=== PATIENT | female | born 1945 | race Caucasian/White ===

== ENCOUNTER → 2016-10-04 | Outpatient (CLI) | payer MEDICARE ==
--- NOTE | 2016-10-04 16:31 | MR ---
EXAMINATION TYPE: MR ankle RT wo con DATE OF EXAM: 10/04/2016 12:34 PM COMPARISON: NONE HISTORY: 71-year-old female with right ankle pain TECHNIQUE: Multiplanar, multisequence images of the right ankle were obtained without IV contrast. FINDINGS: Evaluation of the osseous structures shows some degenerative subchondral cystic change anteriorly in the distal tibia. There is a small tibiotalar joint effusion. An os trigonum is present. Additional subchondral cystic change with joint space narrowing is noted throughout the TMT joints. No evidence for acute fracture or focal bone bruise. The syndesmosis appears intact. There is balled up appearance with abnormal signal involving the anterior tibial tendon with the tend on not seen beyond the level of the ankle joint line, refer to axial images 2425. There is increased signal throughout the sinus Tarsi. The tarsal tunnel is clear. There is abnormality of the peroneal tendons with a split tear of the inframalleolar peroneus longus just prior to the cuboid tunnel measuring 1.8 cm long and additional split tear of the inframalleolar peroneus brevis just after the lateral malleolus measuring 2 cm long. No retracted tear. The ATFL and PTFL are intact. There is thickening and intrinsic increased signal within the CFL sugge sting a grade 2 sprain. Mild tenosynovial fluid along the medial flexor tendons. The deltoid ligament and spring ligament com plex appears grossly intact. There is a 2.4 x 2.4 x 0.5 cm area of well-defined fluid seen along the dorsomedial aspect of the mid to hind foot at the level of the navicular cuneiform junction. Nonspecific soft tissue edema throughout. The Achilles tendon is intact. There is mild thickening at the origin of the plantar fascia at 6 mm w ith some perifascial edema and a moderate-sized plantar calcaneal spur. IMPRESSION: 1. Findings concerning for retracted tear of the anterior tibial tendon with stump located anteriorly at the level of the ankle joint line. 2. Fluid signal throughout the sinus tarsi. Findings could reflect sinus tarsi syndrome or sprain inv olving the roots of the extensor retinaculum. 3. A 2.4 x 2.4 x 0.5 cm fluid collection along the dorsomedial mid to hindfoot could reflect posttrau matic fluid or ganglion cyst formation relating to the ATT tear. 4. Longitudinal split tears of the inframalleolar peroneus longus and brevis tendons measuring 1.8 an d 2.0 cm long, respectively. 5. Possible grade 2 CFL sprain. 6. Mild degenerative changes along the anterior tibiotalar joint. 7. Moderate-sized plantar calcaneal spur with findings which can be seen in the setting of plantar fa sciitis. Clinically correlate.
== END | disposition home or self-care (01) ==
LOC: RADMRIMAIN 11:25
PROVIDERS: ATTEND Orthopaedic Surgery
DX: S96.911A Strain of unspecified muscle and tendon at ankle and foot level, right foot, initial encounter (principal); M77.31 Calcaneal spur, right foot

== ENCOUNTER → 2017-12-13 | Outpatient (CLI) | payer MEDICARE ==
--- NOTE | 2017-12-13 17:21 | BD ---
EXAMINATION TYPE: Axial Bone Density DATE OF EXAM: 12/13/2017 COMPARISON: NONE CLINICAL HISTORY: 72 YR OLD FEMALE....ICD-10 CODE: Z13.820 SCREEN FOR OSTEOPOROSIS Height: 64 Weight: 196 FRAX RISK QUESTIONS: NOTHING TO NOTE HERE RISK FACTORS HISTORY OF: Family History of Osteoporosis: NONE KNOWN Active: SOMEWHAT Diet low in dairy products/other sources of calcium: NO Postmenopausal woman: 53 YRS OLD MEDICATIONS: Additional Medications: BP MEDS, STATINS FOR CHOLESTEROL, REFLUX MEDS PRN, VIT D Additional History: NONE TO NOTE EXAM MEASUREMENTS: Bone mineral densitometry was performed using the [employer] Consult System. Bone mineral density as measured about the Lumbar spine is: ----- L1-L4(G/cm2): 1.514 T Score Values are as follows: ----- L1: 1.5 ----- L2: 4.0 ----- L3: 2.8 ----- L4: 2.8 ----- L1-L4: 2.8 Bone mineral density FIRST BONE DENSITY AT [facility] Bone mineral density about the R hip (g/cm2): 0.747 Bone mineral density about the L hip (g/cm2): 0.829 T Score values are as follows: -----R Neck: -1.8 -----L Neck: -1.9 -----R Total: -2.1 -----L Total: -1.4 Bone mineral density FIRST BONE DENSITY AT [facility] FRAX%s: THERE IS A 12.0% CHANCE OF A MAJOR OSTEOPOROTIC FX AND A 2.9% FOR HIP FX.....PROBABILITY O F FX IN 10 YRS TIME IMPRESSION: Osteopenia (T Score between -2.5 and -1). There is slightly increased risk of fracture and the patient may be considered for treatment. Re-Screen 2-5 years. NOTE: T-SCORE=SD OF THE YOUNG ADULT MEAN.
== END | disposition home or self-care (01) ==
LOC: RADBDWWP 12:17
PROVIDERS: ATTEND Obstetrics & Gynecology
DX: M85.80 Other specified disorders of bone density and structure, unspecified site (principal)
CPT/HCPCS: 77080

== ENCOUNTER → 2020-11-03 | Outpatient (CLI) | payer MEDICARE ==
[2020-11-03 11:54] LABS: HCT 43.1 % (34.0-46.0); HGB 14.2 gm/dL (11.4-16.0); MCH 30.5 pg (25.0-35.0); MCV 92.3 fL (80.0-100.0); Mean Platelet Volume 7.3; Platelet Count 283 k/uL (150-450); RBC 4.67 m/uL (3.80-5.40)
[2020-11-03 11:57] LABS: Appearance,Urine Clear (Clear); Bilirubin,Urine Negative (Negative); Blood,Urine Negative (Negative); Color,Urine Light Yellow; Glucose,Urine (UA) Negative (Negative); Hyaline Casts,Urine 1 /lpf (0-2); Ketones,Urine Negative (Negative); Leukocyte Esterase,Urine Small (Negative); Nitrite,Urine Negative (Negative); PH, Urine 6.5 (5.0-8.0); Protein,Urine Negative (Negative); RBC,Urine 1 /hpf (0-5); Specific Gravity,Urine 1.013 (1.001-1.035); Squamous Epithelial Cell,Urine 1 /hpf (0-4); Urobilinogen,Urine <2.0 mg/dL (<2.0); WBC,Urine 1 /hpf (0-5)
[2020-11-03 12:01] LABS: INR 0.9 (<1.2); Partial Thromboplastin Time 25.3 sec (22.0-30.0); Prothrombin Time 9.7 sec (9.0-12.0)
[2020-11-03 12:06] LABS: Albumin 4.3 g/dL (3.5-5.0); Calcium 9.4 mg/dL (8.4-10.2); Potassium 4.9 mmol/L (3.5-5.1); Total Bilirubin 0.5 mg/dL (0.2-1.3); Total Protein 6.9 g/dL (6.3-8.2)
== END | disposition home or self-care (01) ==
LOC: LABPAT 10:26
PROVIDERS: ATTEND Orthopaedic Surgery
DX: Z01.812 Encounter for preprocedural laboratory examination (principal)
CPT/HCPCS: 36415; 80053; 81001; 85027; 85610; 85730; 87070

== ENCOUNTER 2020-11-11 12:11 | Observation (INO) | payer MEDICARE ==
[2020-11-04 12:00] VITALS: BMI 33.5
[~2020-11-11 12:11] MED LIST: ACETAMINOPHEN TAB 500 MG TAB PO PRN; HYDROcodone/APAP 7.5-325MG 1 EACH TAB PO PRN; HYDROmorphone 0.2 MG/1 ML SYRINGE IVP PRN; HYDROmorphone 0.5 MG/0.5 ML SYRINGE IVP PRN; MAGNESIUM HYDROXIDE 2,400 MG/10 ML CUP PO PRN; MELOXICAM 7.5 MG TAB PO PRN; NALOXONE 0.4 MG/ML 1 ML VIAL IV PRN; ONDANSETRON 4 MG/2 ML VIAL IVP PRN; TRANEXAMIC ACID 1,000 MG in SODIUM CHLORIDE 0.9% 100 ML IVPB PRN
[2020-11-11] MEDS ORDERED: LACTATED RINGERS 1,000 ML IV ONE ×3 (12:55→14:42)
[2020-11-11] MEDS ORDERED: DEXAMETHASONE SOD PHOSPHATE 4 MG/ML 1 ML VIAL IVP ONE (13:02)
[2020-11-11] MEDS ORDERED: PHENYLEPHRINE-0.9% NACL SYG 1,000 MCG/10 ML SYRINGE ONE (13:11)
[2020-11-11] MEDS ORDERED: fentaNYL (PF) 50 MCG/ML 2 ML AMP ONE (13:11)
[2020-11-11] MEDS ORDERED: PROPOFOL 10 MG/ML 20 ML VIAL IV ONE (13:11)
[2020-11-11] MEDS ORDERED: GLYCOPYRROLATE 0.2 MG/ML 2 ML VIAL ONE (13:11)
[2020-11-11] MEDS ORDERED: diphenhydrAMINE 50 MG/ML 1 ML VIAL ONE (13:11)
[2020-11-11] MEDS ORDERED: MIDAZOLAM 2 MG/2 ML VIAL ONE (13:11)
[2020-11-11] MEDS ORDERED: TRANEXAMIC ACID 1,000 MG/10 ML VIAL ONE (13:11)
[2020-11-11] MEDS ORDERED: HEPARIN SODIUM,PORCINE 10,000 UNIT/ML 1 ML VIAL ONE (13:11)
[2020-11-11] MEDS ORDERED: SODIUM CHLORIDE 0.9% 100 ML BAG ONE (13:11)
[2020-11-11] MEDS ORDERED: SODIUM CHLORIDE 0.9% IRRIG 1,000 ML BTL IRRIGATION ONE (13:11)
[2020-11-11] MEDS ORDERED: LIDOCAINE 1% INJ 10MG/ML (20 ML MDV) ONE (13:11)
[2020-11-11] MEDS ORDERED: ceFAZolin 1,000 MG in SODIUM CHLORIDE 0.9% 1,000 ML IRRIGATION ONE (13:12)
[2020-11-11] MEDS: ROPIVACAINE/EPI/CLONIDINE/KET 50 ML SYRINGE MISCELLANE PRN ×3 (13:50→14:39)
--- NOTE | 2020-11-11 14:32 | P.OP ---
Date of Procedure: 11/11/20 Preoperative Diagnosis: Severe osteoarthritis right hip Postoperative Diagnosis: Severe osteoarthritis right hip Procedure(s) Performed: Right total hip arthroplasty with a direct anterior approach Implants: [employer] Polarstem standard size 5 [employer] R3, 3 hole hemispherical acetabular shell, 52 mm [employer] Reflection 6.5 mm cancellus screw, 20 mm 2 [employer] R3, XLPE 20 acetabular liner [employer] Oxinium femoral head 36 m, +4 All components were press-fit. The articulation is Oxinium on polyethylene. Anesthesia: spinal Surgeon: Kei Rogers System Designer #1: Ana M Wynn Estimated Blood Loss (ml): 100 Pathology: other (Femoral head) Condition: stable Disposition: PACU Indications for Procedure: After failure of conservative treatment we discussed the surgical and nonsurgic al treatment options at length. Patient wishes to proceed with a total hip arthroplasty with a direct anterior approach. Complications specific to this procedure were discussed at length, including but not limited to infection, leg length discrepancy, dislocation, nerve injury, and fracture. Covid-19 was also discussed at length with the patient, and they are aware of the current policies and procedures. The patient was given the option of delaying surgery, but they elect to proceed knowing these risks. Patient is aware of all these complications and informed consent was obtained Operative Findings: The operative findings are consistent with severe osteoarthritis of the right hip Description of Procedure: Patient was seen and evaluated in the preoperative area and the consent was reviewed. The operative site was marked with a skin marker. The patient was then brought to the operating room and given preoperative antibiotics intravenously. 1 g of Tranexamic acid was also given intravenously. A spinal anesthetic was administered by the anesthesia department. The patient was then placed on the [place] table with the bony prominences well-padded. The hip area was then prepped with a ChloraPrep solution and draped in the usual sterile fashion. A universal timeout was then performed, which confirmed the patient's name, surgical site, ALLERGIES, and procedure being performed on the consent. Next the incision site was located at 1 cm distal to the anterior superior iliac spine along the flexion crease of the hip. The skin and subcutaneous tissues were sharply incised. Incision was carefully dissected down to the fascia overlying the tensor fascia janene muscle. This fascia was then incised in line with the incision. Care was taken to stay laterally in order to avoid injuring the lateral femoral cutaneous nerve. Next, using blunt finger dissection, the tensor fascia janene muscle was dissected off its investing fascia. The muscle was then carefully retracted laterally with a cobra retractor over the lateral neck of the femur. Next, the circumflex vessels were identified and cauterized using the AquaMantis device. The anterior hip capsule was then exposed. The capsule was then opened and an inverted T fashion. Cobra retractors were then placed intracapsularly. The retractors were maintained intracapsular throughout the procedure. The proximal femur was then visualized. A small amount of traction was placed on the leg. The femoral neck was then osteotomized appropriate level above the lesser trochanter. A small wedge of bone was then removed from the remaining femoral head. Next, using a corkscrew the femoral head was removed from the acetabulum. On gross visual inspection, the femoral head had complete loss of articular cartilage and multiple periarticular osteophytes. The femoral head was then measured. Attention was then turned to the acetabulum. The acetabulum was exposed and any remaining labrum was excised. Sequential reaming of the acetabulum was performed using fluoroscopic guidance until there was a good bed of bleeding cancellus bone. When the appropriate size was reached, a trial was then placed. The position and fit of the trial was checked with fluoroscopy. The trial was then removed. Then, using fluoroscopic guidance, the final implant was impacted at 20 of anteversion and 40 of abduction, and fully seated in the acetabulum. 2 screws were then placed in the acetabulum. Again fluoroscopy was used to check position of the screws. Next, the liner was then impacted, with a 20 elevated liner located in the anterior superior quadrant. Component locking was confirmed. Attention was then directed to the femur. With the aid of the Dallas table, the femur was externally rotated to approximately 130, extended, and adducted under the opposite leg. A side hook was then placed under the proximal femur, and the side hook elevator was used to elevate the proximal femur while releasing the capsule. Retractors were then placed. A capsular release was performed, as well as a release of the conjoined tendon, which afforded excellent visualiz ation of the proximal femur. Next, a box osteotome was used to lateralize the proximal femur. A muffler hand was then used to locate the femoral canal. Sequential broaching was then performed with appropriate size which afforded excellent fixation in the proximal femur. A trial was then placed with appropriate head and neck, and the hip was gently reduced with the aid of the Dallas table. Fluoroscopy was then used to check position of the components, as well as to ensure equal leg lengths. The hip was then gently dislocated and the trials were then removed. Final implants were then impacted and the hip was again reduced. Final fluoroscopic x-rays confirmed that the components were in anatomic position, as well as equal leg lengths. The hip was also taken through range of motion, and found to be stable. The hip was then copiously irrigated with antibiotic solution with pulsatile lavage. The hip was then irrigated with Irrisept solution. The soft tissues were then injected with a ropivacaine solution, which consisted of 246.25 mg of ropivacaine, 0.5 mg of epinephrine, 30 mg of Toradol, 80 g of clonidine, and 48.45 mL of sterile water, for a total of 100 mL of fluid injected. A second dose of 1 g of Tranexamic acid was also given intravenously. Any blood collected by Cell Saver was then returned to the patient at this time. The fascia was then closed with 2-0 strata fix suture. The subcutaneous tissue was closed with 3-0 Vicryl. The subcuticular tissue was closed with 3-0 strata fix suture. The skin was then closed with Exofin skin glue. After the glue and dried, and Optifoam silver impregnated dressing was applied. The patient was then transferred to the recovery room in stable condition. The kindergarten assistant ESPERANZA Weaver was required due to the complexity of surgery, and the need for skilled surgical garment assembly supervisor for positioning, draping, exposure, retraction, and closure of the wound.
--- NOTE | 2020-11-11 15:34 | XR ---
Fluoroscopy History: R HIP REPLACEMENT R hip replacment anterior approach
[2020-11-11] MEDS: SODIUM CHLORIDE 0.9% 1,000 ML IV SCH (16:54)
[2020-11-11] MEDS: SENNOSIDES-DOCUSATE SODIUM 1 EACH TAB PO SCH (21:09)
[2020-11-11] MEDS: ATORVASTATIN 10 MG TAB PO SCH (21:10)
[2020-11-11] MEDS: HYDROcodone/APAP 7.5-325MG 1 EACH TAB PO PRN (21:11)
--- NOTE | 2020-11-11 21:12 | P.CONS ---
History of Present Illness - Reason for Consult Consult date: 11/11/20 Medical management - Chief Complaint Right total hip arthroplasty - History of Present Illness Patient is a 75-year-old female with a known history of hypertension, hyperlipidemia and osteoarthritis of the right hip was admitted to hospital for elective right total hip arthroplasty. Patient failed conservative measures as an outpatient. Patient tolerated the procedure very well. Currently awake alert and oriented x3. Slightly lethargic and drowsy. No complaints of chest pain or shortness of breath. No nausea vomiting abdominal pain or diarrhea. Patient states that she does have a history of sciatic pain status post injury several years ago. Denies any fever or chills. No cough or sputum production. Vitals blood pressure 128/60 and pulse is 82 saturating at 96% on 2 L oxygen via nasal cannula. Review of Systems Constitutional: Patient denies any fever or chills . No generalized weakness or weight loss. Abdomen: Patient denied nausea vomiting and diarrhea and abdominal pain. Cardiovascular: Patient denies any chest pain or short of breath no palpitations. Respiratory: patient denied any cough or sputum production. No shortness of breath Neurologic: Patient denied any numbness or tingling headache. Musculoskeletal: Patient denies any complaints of joint swelling or deformity. Skin: Negative Psychiatric: Negative Endocrine: No heat or cold intolerance. No recent weight gain. Genitourinary: No dysuria or hematuria. All other 14 point ROS negative except the above Past Medical History Past Medical History: Hyperlipidemia, Hypertension Additional Past Medical History / Comment(s): wears brace on rt leg from ball of foot to knee with hinge on ankle area History of Any Multi-Drug Resistant Organisms: None Reported Past Surgical History: Section, Cholecystectomy, Tonsillectomy Additional Past Surgical History / Comment(s): kelly cataracts with implants Past Anesthesia/Blood Transfusion Reactions: No Reported Reaction Smoking Status: Never smoker - Past Family History Mother Family Medical History: No Reported History Medications and Allergies Home Medications Medication Instructions Recorded Confirmed Type Acetaminophen [Tylenol Arthritis] 650 mg PO QAM 11/04/20 11/04/20 History Acetaminophen [Tylenol Extra 1,000 mg PO HS 11/04/20 11/04/20 History Strength] Simvastatin [Zocor] 20 mg PO HS 11/04/20 11/11/20 History lisinopriL 10 mg PO QAM 11/04/20 11/11/20 History Aspirin 325 mg PO BID #60 tab 11/11/20 Rx Celecoxib [CeleBREX] 200 mg PO DAILY 5 Days #5 capsule 11/11/20 Rx HYDROcodone/APAP 7.5-325MG [Mora 1 - 2 tab PO Q6H PRN #32 tab 11/11/20 Rx 7.5-325] Ondansetron Odt [Zofran Odt] 1 tab PO Q8HR PRN #10 tab 11/11/20 Rx Sennosides [Senokot] 2 tab PO DAILY PRN #60 tablet 11/11/20 Rx Allergies Allergy/AdvReac Type Severity Reaction Status Date / Time No Known Allergies Allergy Verified 11/11/20 12:49 Physical Exam Vitals: Vital Signs Temp Pulse Pulse Resp BP Pulse Ox 11/11/20 15:47 58 L 16 120/84 100 11/11/20 15:31 75 16 113/67 100 11/11/20 15:15 72 16 103/49 100 11/11/20 15:00 74 16 94/46 100 11/11/20 14:53 97.0 F L 65 16 90/46 98 11/11/20 12:47 98.4 F 65 20 151/65 97 Intake and Output 11/11/20 11/11/20 11/11/20 06:59 14:59 22:59 Intake Total 1151 100 Output Total 100 Balance 1051 100 Intake: IV 1151 100 Output: Estimated Blood Loss 100 Other: Weight 91.1 kg PHYSICAL EXAMINATION: Patient is lying in the bed comfortably, no acute distress, awake alert and oriented.. HEENT: Normocephalic. Neck is supple. Pupils reactive. Nostrils clear. Oral cavity is moist. Neck reveals no JVD, carotid bruits, or thyromegaly. CHEST EXAMINATION: Trachea is central. Symmetrical expansion. Lung orellana clear to auscultation and percussion. CARDIAC: Normal S1, S2 with no gallops. No murmurs ABDOMEN: Soft. Bowel sounds normal. No organomegaly. No abdominal bruits. Extremities: reveal no edema. No clubbing or cyanosis Neurologically awake, alert, oriented x3 with well-coordinated movements. No focal deficits noted Skin: No rash or skin lesions. Psychiatric: Coperative. Nonsuicidal Musculoskeletal: No joint swelling or deformity.Right hip surgical site bandaged. GUERO drain in place. Assessment and Plan Assessment: Status post right total hip arthroplasty postoperative day 0. Hypertension. Controlled. On lisinopril 10 mg every morning at home. Hyperlipidemia History of sciatic nerve pain DVT prophylaxis and GI prophylaxis. Patient will be continued on pain management, bowel regimen and encourage incentive spirometry. PT OT and DVT prophylaxis as per primary team. We will start back on lisinopril tomorrow morning and titrate blood pressure medications as needed. Continue to follow and further recommendations based on clinical course.Follow-up CBC and BMP. Thank you for your consult.
[2020-11-11] MEDS: ASPIRIN 325 MG TAB PO SCH (21:15)
[2020-11-12] MEDS: SODIUM CHLORIDE 0.9% 1,000 ML IV SCH ×2 (03:12→06:17)
[2020-11-12] MEDS: lisinopriL 10 MG TAB PO SCH (08:22)
--- NOTE | 2020-11-12 08:23 | P.PN ---
Subjective Progress Note Date: 11/12/20 Principal diagnosis: Primary osteoarthritis right hip. Postop total right hip arthroplasty, anterior approach. this is a 75-year-old female who is postop day #1 status post total right hip arthroplasty with anterior approach. She has no new complaints or concerns today. Vital signs are stable. Labs are pending. Objective - Vital Signs Vital signs: Vital Signs Temp 97.7 F 11/12/20 01:33 Pulse 61 11/12/20 01:33 Resp 16 11/12/20 01:33 BP 115/74 11/12/20 01:33 Pulse Ox 95 11/12/20 01:33 Intake & Output 11/11/20 11/12/20 11/12/20 18:59 06:59 18:59 Intake Total 1251 3100 Output Total 100 Balance 1151 3100 Weight 91.1 kg Intake: IV 1251 Intake, IV Titration 3100 Amount Lactated Ringers 1,000 ml 1000 @ 0 mls/hr IV [facility] Rx#:[id number] Lactated Ringers 1,000 ml 1000 @ 0 mls/hr IV [facility] Rx#:[id number] Sodium Chloride 0.9% 1, 1000 000 ml @ 70 mls/hr IV . [id number] [facility] Rx#:[id number] ceFAZolin 2 gm In Sodium 100 Chloride 0.9% 50 ml @ 100 mls/hr IVPB Q8H [facility] Rx#: [id number] Output: Estimated Blood Loss 100 Other: # Voids 0 3 - Exam this is a pleasant 75-year-old female in no acute distress. She is alert and oriented 3. Exam of her right hip reveals that her Optifoam dressing is intact. No visible bloody drainage on the dressing. No surrounding erythema. She has full motion of the foot and ankle with weakness to her ankle dorsiflexion secondary to a chronic foot drop. No calf pain with palpation. Neurovascular status to the lower extremity is intact. Assessment and Plan (1) Primary localized osteoarthritis of right hip Current Visit: Yes Status: Acute Code(s): M16.11 - UNILATERAL PRIMARY OSTEOARTHRITIS, RIGHT HIP SNOMED Code(s): 153874639922430 (2) Status post total hip replacement, right Current Visit: Yes Status: Acute Code(s): Z96.641 - PRESENCE OF RIGHT ARTIFICIAL HIP JOINT SNOMED Code(s): 963579403775 Plan: the clinical findings are discussed with the patient. She is apprehensive about being discharged to home today. She does live alone. We will plan discharged to home tomorrow if cleared medically. Begin physical therapy today.
[2020-11-12] MEDS: HYDROcodone/APAP 7.5-325MG 1 EACH TAB PO PRN ×2 (08:25→17:26)
[2020-11-12] MEDS: MELOXICAM 7.5 MG TAB PO SCH (08:26)
[2020-11-12] MEDS: ASPIRIN 325 MG TAB PO SCH ×2 (08:28→21:39)
[2020-11-12 11:40] LABS: Basophils # (A) 0.02 X 10*3/uL (0.00-0.10); Basophils % (A) 0.2 %; Eosinophils # (A) 0 X 10*3/uL (0.04-0.35); Eosinophils % (A) 0 %; HCT 35.3 % (37.2-46.3); HGB 10.9 g/dL (12.0-15.0); Lymphocytes # (A) 1.23 X 10*3/uL (0.90-5.00); Lymphocytes % (A) 12.5 %; MCH 29.9 pg (27.0-32.0); MCHC 30.9 g/dL (32.0-37.0); Mean Platelet Volume 10.6 fL (9.5-12.2); Monocytes # (A) 1.06 X 10*3/uL (0.20-1.00); Monocytes % (A) 10.8 %; Neutrophils # (A) 7.47 X 10*3/uL (1.80-7.70); Platelet Count 235 X 10*3/uL (140-440); RBC 3.64 X 10*6/uL (4.10-5.20); RDW 13.2 % (11.5-14.5); WBC 9.83 X 10*3/uL (4.50-10.00)
--- NOTE | 2020-11-12 16:28 | P.PN ---
Subjective Progress Note Date: 11/12/20 - Reason for Consult Consult date: 11/11/20 Medical management - Chief Complaint Right total hip arthroplasty - History of Present Illness Patient is a 75-year-old female with a known history of hypertension, hype rlipidemia and osteoarthritis of the right hip was admitted to hospital for elective right total hip arthroplasty. Patient failed conservative measures as an outpatient. Patient tolerated the procedure very well. Currently awake alert and oriented x3. Slightly lethargic and drowsy. No complaints of chest pain or shortness of breath. No nausea vomiting abdominal pain or diarrhea. Patient states that she does have a history of sciatic pain status post injury several years ago. Denies any fever or chills. No cough or sputum production. Vitals blood pressure 128/60 and pulse is 82 saturating at 96% on 2 L oxygen via nasal cannula. 11/12/2020 Patient is seen in follow-up today and continues to be closely monitored. Patient is status post right hip arthroplasty. Surgical site and dressing appears dry and intact with minimal bruising noted surrounding the dressing. Patient is having some increased sensation that is radiating down the right lower extremity which is most likely an expected outcome given recent surgery and anesthesia. Should able to work with physical therapy and tolerated and will be followed daily. Plans are for 24-hour observation from orthopedics and possible discharge in 24 hours. Objective - Vital Signs Vital signs: Vital Signs Temp 98.6 F 11/12/20 13:52 Pulse 74 11/12/20 13:52 Resp 18 11/12/20 13:52 BP 129/77 11/12/20 13:52 Pulse Ox 98 11/12/20 13:52 Intake & Output 11/11/20 11/12/20 11/12/20 18:59 06:59 18:59 Intake Total 1251 3100 Output Total 100 Balance 1151 3100 Weight 91.1 kg Intake: IV 1251 Intake, IV Titration 3100 Amount Lactated Ringers 1,000 ml 1000 @ 0 mls/hr IV [facility] Rx#:[id number] Lactated Ringers 1,000 ml 1000 @ 0 mls/hr IV [facility] Rx#:[id number] Sodium Chloride 0.9% 1, 1000 000 ml @ 70 mls/hr IV . [id number] [facility] Rx#:[id number] ceFAZolin 2 gm In Sodium 100 Chloride 0.9% 50 ml @ 100 mls/hr IVPB Q8H [facility] Rx#: [id number] Output: Estimated Blood Loss 100 Other: # Voids 0 3 - Exam Patient is lying in the bed comfortably, no acute distress, awake alert and oriented.. HEENT: Normocephalic. Neck is supple. Pupils reactive. Nostrils clear. Oral cavity is moist. Neck reveals no JVD, carotid bruits, or thyromegaly. CHEST EXAMINATION: Trachea is central. Symmetrical expansion. Lung orellana clear to auscultation and percussion. CARDIAC: Normal S1, S2 with no gallops. No murmurs ABDOMEN: Soft. Bowel sounds normal. No organomegaly. No abdominal bruits. Extremities: reveal no edema. No clubbing or cyanosis. right anterior hip surgery site dressing is dry and intact with minimal bruising noted at the bottom of the dressing no bleeding or increased swelling noted as well Neurologically awake, alert, oriented x3 with well-coordinated movements. No focal deficits noted Skin: No rash or skin lesions. Psychiatric: Cooperative. Non-suicidal Musculoskeletal: No joint swelling or deformity. - Labs CBC & Chem 7: 11/12/20 07:09 Labs: Abnormal Lab Results - Last 24 Hours (Table) 11/12/20 Range/Units 07:09 RBC 3.64 L (4.10-5.20) X 10*6/uL Hgb 10.9 L (12.0-15.0) g/dL Hct 35.3 L (37.2-46.3) % MCHC 30.9 L (32.0-37.0) g/dL Immature Gran # 0.05 H (0.00-0.04) X 10*3/uL Monocytes # 1.06 H (0.20-1.00) X 10*3/uL Eosinophils # 0 L (0.04-0.35) X 10*3/uL Assessment and Plan Assessment: Status post right total hip arthroplasty postoperative day 1. Hypertension. Controlled. On lisinopril 10 mg every morning at home. Will continue to hold lisinopril for now and monitor vitals closely his blood pressure is on the lower side of 109/62 this morning Hyperlipidemia History of sciatic nerve pain DVT prophylaxis GI prophylaxis Full code Patient will be continued on pain management, bowel regimen and encourage incentive spirometry. PT OT evaluated the patient and did well and will likely be discharged tomorrow. Continue with DVT prophylaxis as per primary team. lisinopril held today as blood pressure was on the lower side and also receiving narcotic medications and will continue to monitor vitals with possibly resuming lisinopril once discharged. Continue to follow and further recommendations based on clinical course.CBC within normal limits as white blood count is 9.83 and hemoglobin is stable at 10.9. Possible discharge in 24 hours per the patient. Thank you for this consultation.
[2020-11-12] MEDS: ATORVASTATIN 10 MG TAB PO SCH (21:39)
[2020-11-12] MEDS: SENNOSIDES-DOCUSATE SODIUM 1 EACH TAB PO SCH (22:49)
[2020-11-13] MEDS: HYDROcodone/APAP 7.5-325MG 1 EACH TAB PO PRN (03:08)
[2020-11-13 07:44] VITALS: BP 117/70; PULSE 83; RESP 18; TEMP 98.9
[2020-11-13] MEDS: SODIUM CHLORIDE 0.9% 1,000 ML IV SCH (09:11)
[2020-11-13] MEDS: ASPIRIN 325 MG TAB PO SCH (09:15)
[2020-11-13] MEDS: lisinopriL 10 MG TAB PO SCH (09:15)
[2020-11-13] MEDS: MELOXICAM 7.5 MG TAB PO SCH (09:16)
--- NOTE | 2020-11-13 09:57 | P.DS ---
Providers Date of admission: 11/12/20 15:39 Expected date of discharge: 11/13/20 Attending physician: Kei Rogers Consults: 11/11/20 11:15 Consult Physician Routine Consulting Provider: Axel Rush Consult Reason/Comments: medical management Do you want consulting provider notified?: Yes Primary care physician: Shelly Daughertyel - Discharge Diagnosis(es) (1) Primary localized osteoarthritis of right hip Current Visit: Yes Status: Acute (2) Status post total hip replacement, right Current Visit: Yes Status: Acute Hospital Course: This is a 75-year-old female with known history of degenerative arthritis of the right hip. The patient presented for evaluation as an outpatient. After discussion and consideration patient elects to proceed with total hip arthroplasty. The patient is seen preoperatively by Dr. Rogers and medically cleared for surgery by their primary care physician. Patient is admitted to [facility] on 11/11/2020 for total hip arthroplasty. The procedure is performed without complication or sequelae. The patient is doing well postoperatively. Labs and vital signs are stable on day of discharge. On day of discharge patient's hip incision is healing well. There is minimal erythema. There is no drainage noted at this time. There is minimal soft tissue swelling to the hip and thigh. Patient has full foot and ankle motion without difficulty or pain. Calf is soft and nontender to palpation. Neurovascular status to the right lower extremity is intact. Patient is discharged home in good condition. Opioid start talking form is reviewed and signed. Please see med rec for accurate list of home medications. Plan - Discharge Summary Discharge Rx Participant: Yes New Discharge Prescriptions: New Sennosides [Senokot] 2 tab PO DAILY PRN #60 tablet PRN Reason: Constipation Aspirin 325 mg PO BID #60 tab Celecoxib [CeleBREX] 200 mg PO DAILY 5 Days #5 capsule HYDROcodone/APAP 7.5-325MG [[place] 7.5-325] 1 - 2 tab PO Q6H PRN #32 tab PRN Reason: Pain Ondansetron Odt [Zofran Odt] 1 tab PO Q8HR PRN #10 tab PRN Reason: Nausea No Action Acetaminophen [Tylenol Arthritis] 650 mg PO QAM Simvastatin [Zocor] 20 mg PO HS Acetaminophen [Tylenol Extra Strength] 1,000 mg PO HS lisinopriL 10 mg PO QAM Discharge Medication List Acetaminophen [Tylenol Arthritis] 650 mg PO QAM 11/04/20 [History] Acetaminophen [Tylenol Extra Strength] 1,000 mg PO HS 11/04/20 [History] Simvastatin [Zocor] 20 mg PO HS 11/04/20 [History] lisinopriL 10 mg PO QAM 11/04/20 [History] Aspirin 325 mg PO BID #60 tab 11/11/20 [Rx] Celecoxib [CeleBREX] 200 mg PO DAILY 5 Days #5 capsule 11/11/20 [Rx] HYDROcodone/APAP 7.5-325MG [[place] 7.5-325] 1 - 2 tab PO Q6H PRN #32 tab 11/11/20 [Rx] Ondansetron Odt [Zofran Odt] 1 tab PO Q8HR PRN #10 tab 11/11/20 [Rx] Sennosides [Senokot] 2 tab PO DAILY PRN #60 tablet 11/11/20 [Rx] Follow up Appointment(s)/Referral(s): [facility], [NON-STAFF] - As Needed Kei Rogers DO [Doctor of Osteopathic Medicine] - 2 Weeks Activity/Diet/Wound Care/Special Instructions: Weightbearing as tolerated with walker. Leave dressing intact. Dressing may be removed by home care nurse or by patient in 7 days. Then change dressing twice daily until follow up. May shower with initial dressing intact and after removal. If dressing become saturated, please remove. Please take aspirin 325mg twice daily for 30 days to prevent blood clots. Recommend use of compression stockings daily until follow up to help prevent swelling and blood clots. May remove at night before sleeping. Please follow-up with [facility] in 2 weeks and call with any questions or concerns, . Discharge Disposition: HOME WITH HOME HEALTH SERVICES
--- NOTE | 2020-11-13 15:51 | P.PN ---
Subjective Progress Note Date: 11/13/20 - Reason for Consult Consult date: 11/11/20 Medical management - Chief Complaint Right total hip arthroplasty - History of Present Illness Patient is a 75-year-old female with a known history of hypertension, hype rlipidemia and osteoarthritis of the right hip was admitted to hospital for elective right total hip arthroplasty. Patient failed conservative measures as an outpatient. Patient tolerated the procedure very well. Currently awake alert and oriented x3. Slightly lethargic and drowsy. No complaints of chest pain or shortness of breath. No nausea vomiting abdominal pain or diarrhea. Patient states that she does have a history of sciatic pain status post injury several years ago. Denies any fever or chills. No cough or sputum production. Vitals blood pressure 128/60 and pulse is 82 saturating at 96% on 2 L oxygen via nasal cannula. 11/12/2020 Patient is seen in follow-up today and continues to be closely monitored. Patient is status post right hip arthroplasty. Surgical site and dressing appears dry and intact with minimal bruising noted surrounding the dressing. Patient is having some increased sensation that is radiating down the right lower extremity which is most likely an expected outcome given recent surgery and anesthesia. Should able to work with physical therapy and tolerated and will be followed daily. Plans are for 24-hour observation from orthopedics and possible discharge in 24 hours. 11/13/2020 Patient is seen this morning with no acute overnight issues. Patient was working with physical therapy again and plans are for discharge today and she will be going home and her daughters will be staying with her for another 2 days and will be receiving home care in the outpatient setting. Patient is extremely anxious and nervous about being home and not doing well. Patient's right hip dressing is dry and intact with no increased swelling or redness noted. Minimal bruising noted which is expected. Patient instructed to resume blood pressure medications and I will primary care provider upon discharge. Review of systems: Constitutional: No reports of fatigue, fever, or chills Cardiovascular: No reports of chest pain or palpitations Respiratory: No reports of shortness of breath or cough GI: No reports of nausea, vomiting, or diarrhea : No reports of dysuria or retention Neurovascular: Reports generalized weakness and some discomfort of the right hip All medications have been reviewed Objective - Vital Signs Vital signs: Vital Signs Temp 98.9 F 11/13/20 07:43 Pulse 83 11/13/20 07:43 Resp 18 11/13/20 07:43 BP 117/70 11/13/20 07:43 Pulse Ox 93 L 11/13/20 07:43 Intake & Output 11/12/20 11/13/20 11/13/20 18:59 06:59 18:59 Intake Total 480 Balance 480 Intake: Oral 480 Other: # Voids 3 - Exam Patient is sitting up in the chair comfortably, no acute distress, awake alert and oriented.. HEENT: Normocephalic. Neck is supple. Pupils reactive. Nostrils clear. Oral cavity is moist. Neck reveals no JVD, carotid bruits, or thyromegaly. CHEST EXAMINATION: Trachea is central. Symmetrical expansion. Lung orellana clear to auscultation and percussion. CARDIAC: Normal S1, S2 with no gallops. No murmurs ABDOMEN: Soft. Bowel sounds normal. No organomegaly. No abdominal bruits. Extremities: reveal no edema. No clubbing or cyanosis. right anterior hip surgery site dressing is dry and intact with minimal bruising noted at the bottom of the dressing no bleeding or increased swelling noted as well Neurologically awake, alert, oriented x3 with well-coordinated movements. No focal deficits noted Skin: No rash or skin lesions. Psychiatric: Cooperative. Non-suicidal Musculoskeletal: No joint swelling or deformity. - Labs CBC & Chem 7: 11/12/20 07:09 Labs: Abnormal Lab Results - Last 24 Hours (Table) 11/12/20 Range/Units 07:09 RBC 3.64 L (4.10-5.20) X 10*6/uL Hgb 10.9 L (12.0-15.0) g/dL Hct 35.3 L (37.2-46.3) % MCHC 30.9 L (32.0-37.0) g/dL Immature Gran # 0.05 H (0.00-0.04) X 10*3/uL Monocytes # 1.06 H (0.20-1.00) X 10*3/uL Eosinophils # 0 L (0.04-0.35) X 10*3/uL Assessment and Plan Assessment: Status post right total hip arthroplasty postoperative day 2. Hypertension. Controlled. On lisinopril 10 mg every morning at home. Instructed to resume home dosing on discharge Hyperlipidemia History of sciatic nerve pain DVT prophylaxis GI prophylaxis Full code Plan: Patient will be continued on pain management, bowel regimen and encourage incentive spirometry. Patient is being discharged today. Continue with DVT prophylaxis as per primary team. Continue to follow and further recommendations based on clinical course. Patient instructed to monitor blood pressure and may resume home dose and follow-up with primary care provider. Thank you for this consultation.
== END 2020-11-13 14:14 | disposition home health service (06) ==
LOC: OR 12:11 → 4SSUR 14:49 → OR 11-12 15:39
PROVIDERS: ADMIT Orthopaedic Surgery; ATTEND Orthopaedic Surgery
DX: M16.11 Unilateral primary osteoarthritis, right hip (principal); E78.5 Hyperlipidemia, unspecified; I10 Essential (primary) hypertension; M54.30 Sciatica, unspecified side; Z79.82 Long term (current) use of aspirin; Z79.1 Long term (current) use of non-steroidal anti-inflammatories (NSAID); Z79.899 Other long term (current) drug therapy; Z87.828 Personal history of other (healed) physical injury and trauma; Z90.49 Acquired absence of other specified parts of digestive tract; Z98.42 Cataract extraction status, left eye; Z98.41 Cataract extraction status, right eye; Z96.1 Presence of intraocular lens; Z98.891 History of uterine scar from previous surgery; Z98.890 Other specified postprocedural states
CPT/HCPCS: 94760 ×2; 97116; 97161; 97165; 86891; 86900; 86901; 85025; 86850; 88300; 73501; 27130; G0378 ×2; C1776; J2250; J1200; J1644; J1100; J0690 ×3; J2405; J2001; J3010; J2370; J2704

== ENCOUNTER 2022-04-29 20:41 | Emergency (ER) | payer MEDICARE ==
[2022-04-29 20:51] VITALS: TEMP 98.2
[2022-04-29] MEDS ORDERED: SODIUM CHLORIDE 0.9% 1,000 ML IV STA (21:45)
[2022-04-29 22:06] LABS: Basophils # (A) 0.1 k/uL (0-0.2); Basophils % (A) 1 %; Eosinophils # (A) 0.2 k/uL (0-0.7); Eosinophils % (A) 2 %; HCT 40.1 % (34.0-46.0); HGB 13.5 gm/dL (11.4-16.0); Lymphocytes # (A) 2.8 k/uL (1.0-4.8); Lymphocytes % (A) 24 %; MCH 30.9 pg (25.0-35.0); MCHC 33.6 g/dL (31.0-37.0); Mean Platelet Volume 9.2; Monocytes # (A) 0.7 k/uL (0-1.0); Monocytes % (A) 6 %; Neutrophils # (A) 7.7 k/uL (1.3-7.7); Neutrophils % (A) 66 %; Platelet Count 281 k/uL (150-450); RBC 4.36 m/uL (3.80-5.40); RDW 12.5 % (11.5-15.5); WBC 11.6 k/uL (3.8-10.6)
--- NOTE | 2022-04-29 22:09 | CT ---
EXAMINATION TYPE: CT brain pat kelley DATE OF EXAM: 04/29/2022 COMPARISON: None HISTORY: pain post syncope episode CT DLP: 1530.7 mGycm, Automated exposure control for dose reduction was used. CONTRAST: Patient injected with 0 mL of Isovue 300. CT of the brain is performed utilizing 3 mm thick sections through the posterior fossa and 3 mm thick sections through the remaining calvarium. Study is performed within 24 hours of arrival to the hospital. No abnormal hyperdensity is present to suggest an acute intracranial hemorrhage. No mass lesion is evident. No acute infarcts are evident. Mild periventricular white matter hypodensity is present, likely on t he basis of chronic white matter ischemic changes. Ventricles and sulci are prominent for the patient age. Paranasal sinuses and mastoid air cells within the [id number] are clear. IMPRESSIONS: 1. Atrophy with mild periventricular white matter ischemic-type changes. CT cervical spine. COMPARISON: None CT of the cervical spine is performed in the axial plane at 2 mm thick sections. Reconstructed image s in the coronal, and sagittal plane are reviewed on the computer. No acute fractures are evident. Vertebral body alignment is normal. Diffuse loss of disc height and cervical spine. Vertebral body heights are preserved. No spinal canal stenosis is evident. Left C3-4 foramen is narrowed due to uncovertebral joint hypertrophy large left facet hypertrophy. Th ere is mild retrolisthesis of L4 posterior L5. Uncovertebral joint hypertrophy is narrowing of L4-5 f oramen bilaterally. Moderate foraminal narrowing is present bilaterally at C5-6 from uncovertebral angélica int the. Foraminal narrowing is present C6-7 from uncovertebral joint hypertrophy. IMPRESSIONS: 1. No acute osseous abnormality. 2. Foraminal narrowing due to uncovertebral joint hypertrophy discussed above
--- NOTE | 2022-04-29 22:10 | XR ---
EXAMINATION TYPE: XR chest 2V DATE OF EXAM: 04/29/2022 COMPARISON: None INDICATION: Syncope TECHNIQUE: Frontal and lateral views of the chest are obtained. FINDINGS: The heart size is normal. The pulmonary vasculature is normal. The lungs are clear. IMPRESSION: 1. No acute pulmonary process.
[2022-04-29 22:18] LABS: INR 0.9 (<1.2); Partial Thromboplastin Time 22.4 sec (22.0-30.0); Prothrombin Time 9.7 sec (9.0-12.0)
[2022-04-29 23:29] LABS: Albumin 3.8 g/dL (3.5-5.0); Calcium 8.9 mg/dL (8.4-10.2); Magnesium 2.2 mg/dL (1.6-2.3); Potassium 4.2 mmol/L (3.5-5.1); Total Bilirubin 0.4 mg/dL (0.2-1.3); Total Protein 6.4 g/dL (6.3-8.2)
--- NOTE | 2022-04-29 23:39 | ED ---
General Adult HPI - General Chief complaint: Syncope Stated complaint: Syncope, head injury Time Seen by Provider: 04/29/22 21:36 Source: patient, EMS Mode of arrival: EMS Limitations: no limitations - History of Present Illness Initial comments: Patient is a 77-year-old female with past medical history of hyperlipidemia and hypertension presenting with chief complaint of syncope. 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 Patient states that prior to losing consciousness she felt a bit dizzy. Bystanders say that she didn't hit her head. No one was able to provide me with an approximately length of time that she was unconscious. No loss of bowel or bladder control. C- collar was initiated by EMS. No chest pain or difficulty breathing. No palpitations or weakness. No numbness or tingling. No abdominal pain, nausea, vomiting. No headache, vision or hearing changes, neck pain or stiffness. - Related Data Home Medications Medication Instructions Recorded Confirmed Acetaminophen [Tylenol Arthritis] 650 mg PO QAM 11/04/20 11/04/20 Acetaminophen [Tylenol Extra 1,000 mg PO HS 11/04/20 11/04/20 Strength] Simvastatin [Zocor] 20 mg PO HS 11/04/20 11/11/20 lisinopriL [Prinivil] 10 mg PO QAM 11/04/20 11/11/20 Previous Rx's Medication Instructions Recorded Aspirin 325 mg PO BID #60 tab 11/11/20 Celecoxib [CeleBREX] 200 mg PO DAILY 5 Days #5 capsule 11/11/20 HYDROcodone/APAP 7.5-325MG [[place] 1 - 2 tab PO Q6H PRN #32 tab 11/11/20 7.5-325] Ondansetron Odt [Zofran Odt] 1 tab PO Q8HR PRN #10 tab 11/11/20 Sennosides [Senokot] 2 tab PO DAILY PRN #60 tablet 11/11/20 Allergies Allergy/AdvReac Type Severity Reaction Status Date / Time No Known Allergies Allergy Verified 11/11/20 12:49 Review of Systems ROS Statement: Those systems with pertinent positive or pertinent negative responses have been documented in the HPI. ROS Other: All systems not noted in ROS Statement are negative. Past Medical History Past Medical History: Hyperlipidemia, Hypertension Additional Past Medical History / Comment(s): wears brace on rt leg from ball of foot to knee with hinge on ankle area History of Any Multi-Drug Resistant Organisms: None Reported Past Surgical History: Section, Cholecystectomy, Tonsillectomy Additional Past Surgical History / Comment(s): kelly cataracts with implants Past Anesthesia/Blood Transfusion Reactions: No Reported Reaction Past Psychological History: No Psychological Hx Reported Smoking Status: Never smoker Past Alcohol Use History: None Reported Past Drug Use History: None Reported - Past Family History Mother Family Medical History: No Reported History General Exam Limitations: no limitations General appearance: alert, in no apparent distress Head exam: Present: atraumatic, normocephalic, normal inspection Eye exam: Present: normal appearance, PERRL, EOMI. Absent: scleral icterus, conjunctival injection, periorbital swelling Pupils: Present: normal accommodation Neck exam: Present: normal inspection Respiratory exam: Present: normal lung sounds bilaterally. Absent: respiratory distress, wheezes, rales, rhonchi, stridor Cardiovascular Exam: Present: regular rate, normal rhythm, normal heart sounds. Absent: systolic murmur, diastolic murmur, rubs, gallop, clicks Neurological exam: Present: alert, oriented X3, CN II-XII intact Expanded Patient oriented to: Present: person, place, time Speech: Present: fluid speech Motor strength exam: RUE: 5, LUE: 5, RLE: 5, LLE: 5 Eye Response: (4) open spontaneously Motor Response: (6) obeys commands Verbal Response: (5) oriented Romy Total: 15 Psychiatric exam: Present: normal affect, normal mood Skin exam: Present: warm, dry, intact, normal color. Absent: rash Course Vital Signs 04/29/22 04/29/22 04/29/22 20:49 21:30 22:00 Temperature 98.2 F Pulse Rate 68 64 62 Respiratory 16 18 18 Rate Blood Pressure 174/75 151/72 164/71 O2 Sat by Pulse 98 98 98 Oximetry 04/29/22 04/29/22 04/30/22 22:30 23:00 00:15 Temperature Pulse Rate 66 64 67 Respiratory 18 18 16 Rate Blood Pressure 149/80 162/69 155/83 O2 Sat by Pulse 98 98 98 Oximetry EKG Findings - EKG Comments: EKG Findings:: Sinus rhythm with sinus arrhythmia. Ventricular rate 67. DE interval 182. QRS 86. QT 414. QTc 429. No ST deviation. EKG reviewed by myself as well as my attending. Medical Decision Making - Medical Decision Making Patient is a 77-year-old female presenting with chief complaint of syncope. Episode occurred just prior to arrival. Patient felt dizzy before losing consciousness, no chest pain, difficulty breathing, palpitations, weakness. No loss of bladder control. On physical examination there are no focal neuro logical deficits, heart and lungs are clear to auscultation. EKG shows no dysrhythmia. WBC 11.6, likely reactive. BUN 24, likely due to hydration status, patient is receiving IV fluids. Troponin is less than 0.012. Electrolytes are WNL. CT of the brain and cervical spine and chest x-ray show n o acute process per my interpretation, radiologist report is also reviewed. Educated patient on these findings, patient is feeling well at this time and would like to be discharged home. She states that she has had some mild congestion and sore throat for the past 3 days and is requesting that Covid and influenza testing the sent, however she will call back for her results. Educated on need for follow-up, patient states that she has an upcoming appointment with her PCP already scheduled. Follow-up with PCP. Report back to ER with any new or worsening symptoms. Discussed return parameters and answered all questions. Patient conveyed verbal understanding and agreed to the plan. I discussed this case in detail with my attending Dr. Verdin - Lab Data Result diagrams: 04/29/22 21:35 04/29/22 22:50 Lab Results 04/29/22 04/29/22 04/29/22 Range/Units 21:35 21:35 21:35 WBC 11.6 H (3.8-10.6) k/uL RBC 4.36 (3.80-5.40) m/uL Hgb 13.5 (11.4-16.0) gm/dL Hct 40.1 (34.0-46.0) % MCV 92.0 (80.0-100.0) fL MCH 30.9 (25.0-35.0) pg MCHC 33.6 (31.0-37.0) g/dL RDW 12.5 (11.5-15.5) % Plt Count 281 (150-450) k/uL MPV 9.2 Neutrophils % 66 % Lymphocytes % 24 % Monocytes % 6 % Eosinophils % 2 % Basophils % 1 % Neutrophils # 7.7 (1.3-7.7) k/uL Lymphocytes # 2.8 (1.0-4.8) k/uL Monocytes # 0.7 (0-1.0) k/uL Eosinophils # 0.2 (0-0.7) k/uL Basophils # 0.1 (0-0.2) k/uL PT 9.7 (9.0-12.0) sec INR 0.9 (<1.2) APTT 22.4 (22.0-30.0) sec Sodium (137-145) mmol/L Potassium (3.5-5.1) mmol/L Chloride (98-107) mmol/L Carbon Dioxide (22-30) mmol/L Anion Gap mmol/L BUN (7-17) mg/dL Creatinine (0.52-1.04) mg/dL Est GFR (CKD-EPI)AfAm (>60 ml/min/1.73 sqM) Est GFR (CKD-EPI)NonAf (>60 ml/min/1.73 sqM) Glucose (74-99) mg/dL Calcium (8.4-10.2) mg/dL Magnesium (1.6-2.3) mg/dL Total Bilirubin (0.2-1.3) mg/dL AST (14-36) U/L ALT (4-34) U/L Alkaline Phosphatase (38-126) U/L Troponin I <0.012 (0.000-0.034) ng/mL Total Protein (6.3-8.2) g/dL Albumin (3.5-5.0) g/dL Urine Color Urine Appearance (Clear) Urine pH (5.0-8.0) Ur Specific [place] (1.001-1.035) Urine Protein (Negative) Urine Glucose (UA) (Negative) Urine Ketones (Negative) Urine Blood (Negative) Urine Nitrite (Negative) Urine Bilirubin (Negative) Urine Urobilinogen (<2.0) mg/dL Ur Leukocyte Esterase (Negative) Urine RBC (0-5) /hpf Urine WBC (0-5) /hpf Ur Squamous Epith Cells (0-4) /hpf Urine Mucus (None) /hpf Coronavirus (PCR) (Not Detectd) Influenza Type A RNA (Not Detectd) Influenza Type B (PCR) (Not Detectd) 04/29/22 04/29/22 04/30/22 Range/Units 22:50 23:40 00:08 WBC (3.8-10.6) k/uL RBC (3.80-5.40) m/uL Hgb (11.4-16.0) gm/dL Hct (34.0-46.0) % MCV (80.0-100.0) fL MCH (25.0-35.0) pg MCHC (31.0-37.0) g/dL RDW (11.5-15.5) % Plt Count (150-450) k/uL MPV Neutrophils % % Lymphocytes % % Monocytes % % Eosinophils % % Basophils % % Neutrophils # (1.3-7.7) k/uL Lymphocytes # (1.0-4.8) k/uL Monocytes # (0-1.0) k/uL Eosinophils # (0-0.7) k/uL Basophils # (0-0.2) k/uL PT (9.0-12.0) sec INR (<1.2) APTT (22.0-30.0) sec Sodium 138 (137-145) mmol/L Potassium 4.2 (3.5-5.1) mmol/L Chloride 107 (98-107) mmol/L Carbon Dioxide 24 (22-30) mmol/L Anion Gap 7 mmol/L BUN 24 H (7-17) mg/dL Creatinine 0.76 (0.52-1.04) mg/dL Est GFR (CKD-EPI)AfAm 87 (>60 ml/min/1.73 sqM) Est GFR (CKD-EPI)NonAf 75 (>60 ml/min/1.73 sqM) Glucose 166 H (74-99) mg/dL Calcium 8.9 (8.4-10.2) mg/dL Magnesium 2.2 (1.6-2.3) mg/dL Total Bilirubin 0.4 (0.2-1.3) mg/dL AST 23 (14-36) U/L ALT 19 (4-34) U/L Alkaline Phosphatase 72 (38-126) U/L Troponin I (0.000-0.034) ng/mL Total Protein 6.4 (6.3-8.2) g/dL Albumin 3.8 (3.5-5.0) g/dL Urine Color Light Yellow Urine Appearance Clear (Clear) Urine pH 5.5 (5.0-8.0) Ur Specific [place] 1.010 (1.001-1.035) Urine Protein Negative (Negative) Urine Glucose (UA) Negative (Negative) Urine Ketones Negative (Negative) Urine Blood Negative (Negative) Urine Nitrite Negative (Negative) Urine Bilirubin Negative (Negative) Urine Urobilinogen <2.0 (<2.0) mg/dL Ur Leukocyte Esterase Trace H (Negative) Urine RBC 1 (0-5) /hpf Urine WBC 1 (0-5) /hpf Ur Squamous Epith Cells 1 (0-4) /hpf Urine Mucus Rare H (None) /hpf Coronavirus (PCR) (Not Detectd) Influenza Type A RNA Not Detected (Not Detectd) Influenza Type B (PCR) Not Detected (Not Detectd) 04/30/22 Range/Units 00:08 WBC (3.8-10.6) k/uL RBC (3.80-5.40) m/uL Hgb (11.4-16.0) gm/dL Hct (34.0-46.0) % MCV (80.0-100.0) fL MCH (25.0-35.0) pg MCHC (31.0-37.0) g/dL RDW (11.5-15.5) % Plt Count (150-450) k/uL MPV Neutrophils % % Lymphocytes % % Monocytes % % Eosinophils % % Basophils % % Neutrophils # (1.3-7.7) k/uL Lymphocytes # (1.0-4.8) k/uL Monocytes # (0-1.0) k/uL Eosinophils # (0-0.7) k/uL Basophils # (0-0.2) k/uL PT (9.0-12.0) sec INR (<1.2) APTT (22.0-30.0) sec Sodium (137-145) mmol/L Potassium (3.5-5.1) mmol/L Chloride (98-107) mmol/L Carbon Dioxide (22-30) mmol/L Anion Gap mmol/L BUN (7-17) mg/dL Creatinine (0.52-1.04) mg/dL Est GFR (CKD-EPI)AfAm (>60 ml/min/1.73 sqM) Est GFR (CKD-EPI)NonAf (>60 ml/min/1.73 sqM) Glucose (74-99) mg/dL Calcium (8.4-10.2) mg/dL Magnesium (1.6-2.3) mg/dL Total Bilirubin (0.2-1.3) mg/dL AST (14-36) U/L ALT (4-34) U/L Alkaline Phosphatase (38-126) U/L Troponin I (0.000-0.034) ng/mL Total Protein (6.3-8.2) g/dL Albumin (3.5-5.0) g/dL Urine Color Urine Appearance (Clear) Urine pH (5.0-8.0) Ur Specific [place] (1.001-1.035) Urine Protein (Negative) Urine Glucose (UA) (Negative) Urine Ketones (Negative) Urine Blood (Negative) Urine Nitrite (Negative) Urine Bilirubin (Negative) Urine Urobilinogen (<2.0) mg/dL Ur Leukocyte Esterase (Negative) Urine RBC (0-5) /hpf Urine WBC (0-5) /hpf Ur Squamous Epith Cells (0-4) /hpf Urine Mucus (None) /hpf Coronavirus (PCR) Not Detected (Not Detectd) Influenza Type A RNA (Not Detectd) Influenza Type B (PCR) (Not Detectd) Disposition Clinical Impression: Syncope Disposition: HOME SELF-CARE Condition: Fair Instructions (If sedation given, give patient instructions): Syncope (ED) Additional Instructions: Follow-up with PCP. Report back to ER with any new or worsening symptoms. Is patient prescribed a controlled substance at d/c from ED?: No Referrals: Shelly Estrada DO [Primary Care Provider] - 1-2 days Time of Disposition: 00:00
[2022-04-29 23:57] LABS: Appearance,Urine Clear (Clear); Bilirubin,Urine Negative (Negative); Blood,Urine Negative (Negative); Color,Urine Light Yellow; Glucose,Urine (UA) Negative (Negative); Ketones,Urine Negative (Negative); Leukocyte Esterase,Urine Trace (Negative); Mucus,Urine Rare /hpf; Nitrite,Urine Negative (Negative); PH, Urine 5.5 (5.0-8.0); Protein,Urine Negative (Negative); RBC,Urine 1 /hpf (0-5); Squamous Epithelial Cell,Urine 1 /hpf (0-4); Urobilinogen,Urine <2.0 mg/dL (<2.0); WBC,Urine 1 /hpf (0-5)
[2022-04-30 01:07] VITALS: BP 155/83; PULSE 67; RESP 16
== END 2022-04-30 00:20 | disposition home or self-care (01) ==
LOC: EC 20:41
DX: R55 Syncope and collapse (principal); M43.16 Spondylolisthesis, lumbar region; M48.061 Spinal stenosis, lumbar region without neurogenic claudication; I10 Essential (primary) hypertension; E78.5 Hyperlipidemia, unspecified; Z20.822 Contact with and (suspected) exposure to COVID-19; Z79.899 Other long term (current) drug therapy
CPT/HCPCS: 36415; 70450; 71046; 72125; 80053; 81001; 83735; 84484; 85025; 85610; 85730; 87502; 87635; 93005; 96360; 99285

== ENCOUNTER → 2022-05-12 | Outpatient (CLI) | payer MEDICARE ==
--- NOTE | 2022-05-12 14:56 | US ---
EXAMINATION TYPE: US carotid duplex BILAT DATE OF EXAM: 05/12/2022 COMPARISON: NONE CLINICAL HISTORY: R42 DIZZINESS AND GIDDINESS. TECHNIQUE: Carotid duplex ultrasound examination. Indirect Doppler criteria was utilized. FINDINGS: EXAM MEASUREMENTS: RIGHT: Peak Systolic Velocity (PSV) cm/sec ----- Right CCA: 79.0 ----- Right ICA: 77.9 ----- Right ECA: 87.5 ICA/CCA ratio: 1.0 RIGHT: End Diastole cm/sec ----- Right CCA: 23.2 ----- Right ICA: 29.9 ----- Right ECA: 14.2 LEFT: Peak Systolic Velocity (PSV) cm/sec ----- Left CCA: 61.0 ----- Left ICA: 153. ----- Left ECA: 54.6 ICA/CCA ratio: 2.5 LEFT: End Diastole cm/sec ----- Left CCA: 14.7 ----- Left ICA: 40.2 ----- Left ECA: 0.0 VERTEBRALS (direction of flow): Right Vertebral: Antegrade Left Vertebral: Antegrade Rhythm: Normal METHODS SPECIALIST NOTES: Mild atherosclerotic changes on right with no significant velocity increases, mode rate atherosclerotic changes on left with slight velocity increase. IMPRESSION: 1. 50-69% stenosis of the left carotid bifurcation 2. Less than 50% stenosis of the right carotid bifurcation. Criteria for Assigning % of Stenosis / Diameter reduction (Estimation based on the indirect measurements of the internal carotid artery velocities (ICA PSV). 1. Normal (no stenosis)=ICA PSV < 125 cm/s: ratio < 2.0: ICA EDV<40 cm/s. 2. Less than 50% stenosis=ICA PSV < 125 cm/s: ratio < 2.0: ICA EDV<40 cm/s. 3. 50 to 69% stenosis=ICA PSV of 125 to 230 cm/s 50-69% stenosis .0: ICA EDV 40-100 cm/s. 4. Greater than 70% stenosis to near occlusion= ICA PSV > 230 cm/s: ratio > 4.0: ICA EDV > 100 cm/s. 5. Near occlusion= ICA PSV velocities may be low or undetectable: variable ratio and ICA EDV. 6. Total occlusion=unable to detect flow.
== END | disposition home or self-care (01) ==
LOC: RADUSWWP 13:32
PROVIDERS: ATTEND Family Medicine
DX: I65.23 Occlusion and stenosis of bilateral carotid arteries (principal); R42 Dizziness and giddiness
CPT/HCPCS: 93880

== ENCOUNTER 2022-07-27 09:39 | Observation (INO) | payer MEDICARE ==
[~2022-07-27 09:39] MED LIST changes: +DEXAMETHASONE SOD PHOSPHATE 4 MG/ML 1 ML VIAL IV ONE; +GABAPENTIN 300 MG CAP PO PRN; -HYDROcodone/APAP 7.5-325MG 1 EACH TAB PO PRN; -HYDROmorphone 0.2 MG/1 ML SYRINGE IVP PRN; +LIDOCAINE 1% (10MG/ML) FOR IV START INTRADERMA PRN; -MAGNESIUM HYDROXIDE 2,400 MG/10 ML CUP PO PRN; -NALOXONE 0.4 MG/ML 1 ML VIAL IV PRN; +ONDANSETRON 4 MG/2 ML VIAL IVP ONE; -ONDANSETRON 4 MG/2 ML VIAL IVP PRN; -TRANEXAMIC ACID 1,000 MG in SODIUM CHLORIDE 0.9% 100 ML IVPB PRN; +TRANEXAMIC ACID IN NACL,ISO-OS 1,000 MG in SALINE 1 100ML.BAG IVPB PRN
[2022-07-27] MEDS: LACTATED RINGERS 1,000 ML IV SCH (10:15)
[2022-07-27] MEDS ORDERED: fentaNYL (PF) 50 MCG/1 ML VIAL IVP ONE (10:51)
[2022-07-27] MEDS ORDERED: MIDAZOLAM 2 MG/2 ML VIAL IVP ONE (10:51)
[2022-07-27] MEDS ORDERED: MAGNESIUM HYDROXIDE 2,400 MG/10 ML CUP PO PRN (11:33)
[2022-07-27] MEDS ORDERED: HYDROmorphone 0.5 MG/0.5 ML SYRINGE IVP PRN ×3 (11:33)
[2022-07-27] MEDS ORDERED: ONDANSETRON 4 MG/2 ML VIAL IVP PRN (11:33)
[2022-07-27] MEDS ORDERED: NALOXONE 0.4 MG/ML 1 ML VIAL IV PRN (11:33)
--- NOTE | 2022-07-27 11:45 | P.ANPRN ---
Procedure Note - Anesthesia - Nerve Block Performed Left Missael Single Time Out Performed: Yes ([id number]) Date of Procedure: 07/27/22 Procedure Start Time: 10:51 Procedure Stop Time: 10:59 Location of Patient: PreOp Indication: Acute Post-Operative Pain, Dx/Pain Location (Left hip pain), Requested by Surgeon Specifically requested for management of pain by DrKwame: Kei Rogers Sedation Type: Sedate with meaningful contact maintained Preparation: Sterile Prep Position: Supine Catheter: None Needle Types: Pajunk Needle Gauge: 18 (100 mm) Ultrasound used to visualize needle placement: Yes Ultrasound used to observe medication spread: Yes Injectate: 0.5% Ropivacaine (see comment for volume) (20 cc) Blood Aspirated: No Pain Paresthesia on Injection Noted: No Resistance on Injection: Normal Image Stored and Saved: Yes Events: Uneventful and Well Tolerated
[2022-07-27] MEDS ORDERED: PROPOFOL 10 MG/ML 20 ML VIAL IV ONE (11:50)
[2022-07-27] MEDS ORDERED: fentaNYL (PF) 50 MCG/ML 2 ML AMP ONE (11:50)
[2022-07-27] MEDS ORDERED: MIDAZOLAM 2 MG/2 ML VIAL ONE (11:50)
[2022-07-27] MEDS ORDERED: TRANEXAMIC ACID IN NACL,ISO-OS 1,000 MG/100 ML BAG ONE (11:50)
[2022-07-27] MEDS ORDERED: ePHEDrine 50 MG/ML 1 ML VIAL ONE (11:50)
[2022-07-27] MEDS ORDERED: ROPIVACAINE 5 MG/ML 30 ML VIAL ONE (11:50)
[2022-07-27] MEDS ORDERED: PHENYLEPHRINE-0.9% NACL SYG 1,000 MCG/10 ML SYRINGE ONE (11:50)
[2022-07-27] MEDS ORDERED: ceFAZolin 1,000 MG in SODIUM CHLORIDE 0.9% 1,000 ML IRRIGATION ONE (11:54)
[2022-07-27] MEDS ORDERED: ROPIVACAINE 5 MG/ML 30 ML VIAL MISCELLANE ONE (12:40)
[2022-07-27] MEDS ORDERED: LACTATED RINGERS 1,000 ML IV ONE (12:51)
--- NOTE | 2022-07-27 13:21 | P.OP ---
Date of Procedure: 07/27/22 Preoperative Diagnosis: Severe osteoarthritis left hip Postoperative Diagnosis: Severe osteoarthritis left hip Procedure(s) Performed: Left total hip arthroplasty with a direct anterior approach Implants: [employer] Polarstem standard size 4 [employer] R3, 3 hole hemispherical acetabular shell, 52 mm [employer] Reflection 6.5 mm cancellus screw, 20 mm 2 [employer] R3, XLPE 20 acetabular liner [employer] Oxinium femoral head 36 m, +0 All components were press-fit. The articulation is Oxinium on polyethylene. Anesthesia: spinal Surgeon: Kei Rogers Alley Worker #1: Ana M Wynn Estimated Blood Loss (ml): 200 Pathology: other (Femoral head) Condition: stable Disposition: PACU Indications for Procedure: After failure of conservative treatment we discussed the surgical and nonsurgical treatment options at length. Patient wishes to proceed with a total hip arthroplasty with a direct anterior approach. Complications specific to this procedure were discussed at length, including but not limited to infection, leg length discrepancy, dislocation, nerve injury, and fracture. Covid-19 was also discussed at length with the patient, and they are aware of the current policies and procedures. The patient was given the option of delaying surgery, but they elect to proceed knowing these risks. Patient is aware of all these complications and informed consent was obtained Operative Findings: The operative findings are consistent with severe osteoarthritis of the left hip Description of Procedure: The patient was seen and evaluated in the preoperative area and the consent was reviewed. The operative site was marked with a skin marker. The patient verified the procedure and operative site. A MEGHAN block [facility] in the preoperative area. The patient was then brought to the operating room and given preoperative antibiotics intravenously. 1 g of Tranexamic acid was also given intravenously. A spinal anesthetic was administered by the anesthesia department. The patient was then placed on the Fitzgerald table with the bony prominences well-padded. The hip area was then prepped with a ChloraPrep solution and draped in the usual sterile fashion. A universal timeout was then performed, which confirmed the patient's name, surgical site, ALLERGIES, and procedure being performed on the consent. Next the incision site was located at 1 cm distal and 4 cm lateral to the anterior superior iliac spine. The skin and subcutaneous tissues were sharply incised. Incision was carefully dissected down to the fascia overlying the tensor fascia janene muscle. This fascia was then incised in line with the muscle fibers. Care was taken to stay laterally in order to avoid injuring the lateral femoral cutaneous nerve. Next, using blunt finger dissection, the tensor fascia janene muscle was dissected off its investing fascia. The muscle was then carefully retracted laterally with a cobra retractor over the lateral neck of the femur. Next, the circumflex vessels were identified and cauterized using the Aquamantis device. The anterior hip capsule was then exposed. The capsule was then opened and an inverted T fashion. The retractors were then placed intracapsularly. The retractors were maintained intracapsular throughout the procedure. The proximal femur was then visualized. Fluoroscopic x-rays were then taken in order to evaluate the preoperative leg lengths. A small amount of traction was placed on the leg. The femoral neck was then osteotomized at the appropriate level above the lesser trochanter. A small wedge of bone was then removed from the remaining femoral head. Next, using a corkscrew the femoral head was removed from the acetabulum. On gross visual inspection, the femoral head had complete loss of articular cartilage and multiple periarticular osteophytes. The femoral head was then measured. Attention was then turned to the acetabulum. The acetabulum was exposed and any remaining labrum was excised. Sequential reaming of the acetabulum was performed using fluoroscopic guidance until there was a good bed of bleeding cancellus bone. When the appropriate size was reached, a trial was then placed. The position and fit of the trial was checked with fluoroscopy. The trial was then removed. Then, using fluoroscopic guidance, the final implant was impacted at 20 of anteversion and 40 of abduction, and fully seated in the acetabulum. 2 screws were then placed in the acetabulum. Again fluoroscopy was used to check position of the screws. Next, the liner was then impacted, with a 20 elevated liner located in the anterior superior quadrant. Component locking was confirmed. Attention was then directed to the femur. With the aid of the Fitzgerald table, the femur was externally rotated to approximately 130, extended, and adducted under the opposite leg. A side hook was then placed under the proximal femur, and the side hook elevator was used to elevate the proximal femur while releasing the capsule. Retractors were then placed. A capsular release was performed, as well as a release of the conjoined tendon, which afforded excellent visualiza tion of the proximal femur. Next, a box osteotome was used to lateralize the proximal femur. A hand lens polisher was then used to locate the femoral canal. Sequential broaching was then performed with appropriate size which afforded excellent fixation in the proximal femur. A trial was then placed with appropriate head and neck, and the hip was gently reduced with the aid of the Fitzgerald table. Fluoroscopy was then used to check position of the components, as well as to evaluate the leg lengths and offset. The leg lengths and offset were measured as closely as possible to ensure stability of the hip. The hip was then gently dislocated and the trials were then removed. Final implants were then impacted and the hip was again reduced. Final fluoroscopic x-rays confirmed that the components were in anatomic position. The leg lengths and offset were measured and were found to coincide with the trial measurements. The hip was also taken through range of motion, and found to be stable. The hip was then copiously irrigated with antibiotic solution with pulsatile lavage. The hip was then irrigated with Irrisept solution. The soft tissues were then injected with a ropivacaine solution. A second dose of 1 g of Tranexamic acid was also given intravenously. The fascia was then closed with 2-0 strata fix suture. The subcutaneous tissue was closed with 3-0 Vicryl. The subcuticular tissue was closed with 3-0 strata fix suture. The skin was then closed with Exofin skin glue. After the glue and dried, and Optifoam silver impregnated dressing was applied. The patient was then transferred to the recovery room in stable condition. The volunteer services assistant ESPERANZA Weaver was required due to the complexity of surgery, and the need for skilled director medical surgical for positioning, draping, exposure, retraction, and closure of the wound.
[2022-07-27] MEDS: HYDROcodone/APAP 7.5-325MG 1 EACH TAB PO PRN ×2 (15:11→21:03)
--- NOTE | 2022-07-27 15:13 | XR ---
Intraoperative/procedural fluoroscopic services were provided for total left hip arthroplasty. Hardwa re appears intact with appropriate alignment. Total fluoroscopy time is 39.3 seconds with a total of 2 submitted images to PACS. Please see the operative note for further details.
[2022-07-27] MEDS: SODIUM CHLORIDE 0.9% 1,000 ML IV SCH (18:22)
[2022-07-27] MEDS: SENNOSIDES-DOCUSATE SODIUM 1 EACH TAB PO SCH (19:51)
[2022-07-27] MEDS: ASPIRIN 325 MG TAB PO SCH (19:51)
[2022-07-27] MEDS: ATORVASTATIN 10 MG TAB PO SCH (19:51)
--- NOTE | 2022-07-27 21:08 | P.CONS ---
History of Present Illness - Reason for Consult Consult date: 07/27/22 Medical management Requesting physician: Kei Rogers - Chief Complaint Left hip surgery - History of Present Illness This is a pleasant 77-year-old patient follows Dr. Shelly Estrada. Chronic stable medical conditions include hypertension, hyperlipidemia, osteoarthritis of other joints. Patient today underwent left total hip arthroplasty. Postprocedure pain is controlled. Laying in bed. No nausea vomiting. No chest pain. Did tolerate a light supper. Review of systems: GEN.: None EYES: None HEENT: None NECK: None RESPIRATORY: None CARDIOVASCULAR: None GASTROINTESTINAL: None GENITOURINARY: None MUSCULOSKELETAL: Joint pains LYMPHATICS: None HEMATOLOGICAL: None PSYCHIATRY: None NEUROLOGICAL: None Past medical history to include: Hypertension, hyperlipidemia, osteoarthritis Social history: Lives alone. No smoking or alcohol. Physical examination: VITAL SIGNS: 97.9, 79, 17, 99/65, 93% on room air GENERAL: BMI 33.3, reclining, comfortable. EYES: Pupils equal. Conjunctiva normal. HEENT: External appearance of nose and ears normal, oral cavity grossly normal. NECK: JVD not raised; masses not palpable. HEART: First and second heart sounds are normal; no edema. LUNGS: Respiratory rate normal; clear to auscultation. ABDOMEN: Soft, nontender, liver spleen not palpable, no masses palpable. PSYCH: Alert and oriented x3; mood and affect normal. MUSCULOSKELETAL:No Clubbing/cyanosis;muscles-grossly intact. OA. Dressing over incision site left hip. NEUROLOGICAL: Cranial nerves grossly intact; no facial asymmetry, power and sensation grossly intact. LYMPHATICS: No lymph nodes palpable in the axilla and neck INVESTIGATIONS, reviewed in the clinical context: White count 6.7 hemoglobin 14.8 platelets 213 sodium 140 potassium 5. 21.4 creatinine 0.9 Assessment and plan: -Left total hip arthroplasty. Aspirin for DVT prophylaxis. Pain control. -Primary osteoarthritis Pain medications as needed -Obesity BMI 33.3 Weight loss measures -Essential hypertension Prinivil 10 mg a day -Hyperlipidemia Zocor 20 mg daily at bedtime Care was discussed with the patient. Questions answered. Home medications resumed. Thank you Dr. Rogers Past Medical History Past Medical History: Hyperlipidemia, Hypertension Additional Past Medical History / Comment(s): wears brace on rt leg from ball of foot to knee with hinge on ankle area History of Any Multi-Drug Resistant Organisms: None Reported Past Surgical History: Section, Cholecystectomy, Joint Replacement, Tonsillectomy Additional Past Surgical History / Comment(s): kelly cataracts with implants, rt hip replacement Past Anesthesia/Blood Transfusion Reactions: No Reported Reaction Past Psychological History: No Psychological Hx Reported Smoking Status: Never smoker Past Alcohol Use History: None Reported Past Drug Use History: None Reported - Past Family History Mother Family Medical History: No Reported History Medications and Allergies Home Medications Medication Instructions Recorded Confirmed Type Simvastatin [Zocor] 20 mg PO HS 11/04/20 07/21/22 History lisinopriL [Prinivil] 10 mg PO QAM 11/04/20 07/21/22 History Aspirin 325 mg PO BID #60 tab 07/27/22 Rx HYDROcodone/APAP 7.5-325MG [[place] 1 - 2 tab PO Q6H PRN #32 tab 07/27/22 Rx 7.5-325] Sennosides [Senokot] 2 tab PO DAILY PRN #60 tablet 07/27/22 Rx Allergies Allergy/AdvReac Type Severity Reaction Status Date / Time povidone-iodine AdvReac Itching Verified 07/21/22 09:01 [From Betadine] Physical Exam Vitals: Vital Signs Temp Pulse Resp BP Pulse Ox 07/27/22 20:00 97.9 F 79 17 99/65 93 L 07/27/22 19:47 79 99/65 93 L 07/27/22 19:11 63 104/65 92 L 07/27/22 18:56 62 92/58 89 L 07/27/22 18:41 60 100/65 92 L 07/27/22 18:26 64 107/69 95 07/27/22 18:11 62 100/64 92 L 07/27/22 17:56 62 109/68 91 L 07/27/22 17:41 65 115/76 93 L 07/27/22 17:26 60 112/72 93 L 07/27/22 17:11 67 105/65 96 07/27/22 16:11 58 L 16 126/56 94 L 07/27/22 15:47 74 16 134/63 96 07/27/22 15:12 82 16 136/62 97 07/27/22 14:27 60 16 129/58 97 07/27/22 14:12 55 L 16 119/55 100 07/27/22 13:57 60 16 109/55 100 07/27/22 13:42 97.0 F L 65 16 99/51 97 07/27/22 11:39 71 16 175/74 100 07/27/22 11:24 58 L 16 146/56 100 07/27/22 11:09 58 L 16 149/67 100 07/27/22 10:56 72 16 160/72 100 07/27/22 10:51 70 16 175/75 100 07/27/22 10:08 97.5 F L 67 16 150/69 97 Intake and Output 07/27/22 07/27/22 07/27/22 06:59 14:59 22:59 Intake Total 1351 Output Total 200 Balance 1151 Intake: IV 1351 Output: Estimated Blood Loss 200 Other: # Voids 0 Weight 87.9 kg 87.9 kg
[2022-07-28] MEDS: LACTATED RINGERS 1,000 ML IV SCH (03:49)
[2022-07-28] MEDS: SODIUM CHLORIDE 0.9% 1,000 ML IV SCH ×2 (03:49→20:10)
[2022-07-28] MEDS: HYDROcodone/APAP 7.5-325MG 1 EACH TAB PO PRN ×3 (05:34→20:31)
[2022-07-28] MEDS: lisinopriL 10 MG TAB PO SCH (08:50)
[2022-07-28] MEDS: ASPIRIN 325 MG TAB PO SCH ×2 (09:20→20:31)
[2022-07-28 09:51] LABS: Basophils # (A) 0.02 X 10*3/uL (0.00-0.10); Basophils % (A) 0.2 %; Eosinophils # (A) 0 X 10*3/uL (0.04-0.35); Eosinophils % (A) 0 %; HCT 39.7 % (37.2-46.3); HGB 12.6 g/dL (12.0-15.0); Immature Grans, Automated 0.3 %; Lymphocytes # (A) 1.49 X 10*3/uL (0.90-5.00); Lymphocytes % (A) 16.6 %; MCH 29.3 pg (27.0-32.0); MCHC 31.7 g/dL (32.0-37.0); MCV 92.3 fL (80.0-97.0); Monocytes # (A) 0.84 X 10*3/uL (0.20-1.00); Monocytes % (A) 9.4 %; NRBC Per 100 WBC 0 /100 WBCS (0.0-0.0); Neutrophils % (A) 73.5 %; Platelet Count 237 X 10*3/uL (140-440); RDW 13.2 % (11.5-14.5); WBC 8.98 X 10*3/uL (4.50-10.00)
--- NOTE | 2022-07-28 10:47 | P.PN ---
Subjective Progress Note Date: 07/28/22 Principal diagnosis: Primary after arthritis left hip. Status post total left hip arthroplasty. This is a 77-year-old female who is status post total left hip arthroplasty on 07/27/2022. The patient attempted to get up with physical therapy today but was very dizzy. She is currently up in a chair. She has no complaint of nausea, vomiting or diarrhea. She is afebrile. Vital signs are stable. Objective - Vital Signs Vital signs: Vital Signs Temp 97.9 F 07/28/22 08:25 Pulse 80 07/28/22 08:46 Resp 18 07/28/22 08:25 BP 117/74 07/28/22 08:46 Pulse Ox 97 07/28/22 08:25 FiO2 Intake & Output 07/27/22 07/28/22 07/28/22 18:59 06:59 18:59 Intake Total 1351 118 Output Total 200 Balance 1151 118 Weight 87.9 kg Intake: IV 1351 Oral 118 Output: Estimated Blood Loss 200 Other: # Voids 0 2 - Exam This is a pleasant 77-year-old female in no acute distress. She is alert and oriented 3. She is sitting up in a chair. Exam of the left hip reveals that her dressing is clean, dry and intact. She has full foot and ankle motion without difficulty or pain. Neurovascular status to the lower extremity is intact. - Labs CBC & Chem 7: 07/28/22 05:37 Labs: Abnormal Lab Results - Last 24 Hours (Table) 07/28/22 Range/Units 05:37 MCHC 31.7 L (32.0-37.0) g/dL Eosinophils # 0 L (0.04-0.35) X 10*3/uL Assessment and Plan (1) Osteoarthritis of left hip Current Visit: Yes Status: Acute Code(s): M16.12 - UNILATERAL PRIMARY OSTEOARTHRITIS, LEFT HIP SNOMED Code(s): 964625307054072 (2) S/P total left hip arthroplasty Current Visit: Yes Status: Acute Code(s): Z96.642 - PRESENCE OF LEFT ARTIFICIAL HIP JOINT SNOMED Code(s): 989645856231 Plan: The clinical findings are discussed with the patient. Physical therapy will work with her again this afternoon. If her dizziness improves she may be discharged to home later today. Otherwise we'll keep her 1 more day.
--- NOTE | 2022-07-28 12:26 | P.PN ---
Progress Note - Text Progress Note Date: 07/28/22 - Chief Complaint Left hip surgery Hospital course: This is a pleasant 77-year-old patient follows Dr. Shelly Estrada. Chronic stable medical conditions include hypertension, hyperlipidemia, osteoarthritis of other joints. Patient today underwent left total hip arthroplasty. Postprocedure pain is controlled. Laying in bed. No nausea vomiting. No chest pain. Did tolerate a light supper. 07/28/2022: Sitting up in a chair. Did walk to the bathroom. Did feel a bit dizzy this morning. Lisinopril was held. No chest pain. Had a breakfast. No nausea vomiting. If patient is discharged to check her blood pressure every morning. Resume lisinopril when systolic blood pressure above 1:30. Active Medications Hydrocodone Bitart/Acetaminophen (Hydrocodone/Apap 7.5-325mg 1 Each Tab) 1 each PO Q6H PRN PRN Reason: Pain Scale 1 to 5 Stop: 08/26/22 11:36 Last Admin: 07/27/22 21:03 Dose: 1 each Hydrocodone Bitart/Acetaminophen (Hydrocodone/Apap 7.5-325mg 1 Each Tab) 2 each PO Q6H PRN PRN Reason: Pain Scale 6 to 10 Stop: 08/26/22 11:36 Last Admin: 07/28/22 05:34 Dose: 2 each Aspirin (Aspirin 325 Mg Tab) 325 mg PO BID [facility] Stop: 08/26/22 21:01 Last Admin: 07/28/22 09:20 Dose: 325 mg Atorvastatin Calcium (Atorvastatin 10 Mg Tab) 10 mg PO HS [facility] Last Admin: 07/27/22 19:51 Dose: 10 mg Hydromorphone HCl (Hydromorphone 0.5 Mg/0.5 Ml Syringe) 0.125 mg IVP Q3HR PRN PRN Reason: Pain Scale 1 to 3 Stop: 08/26/22 11:34 Hydromorphone HCl (Hydromorphone 0.5 Mg/0.5 Ml Syringe) 0.5 mg IVP Q3HR PRN PRN Reason: Pain Scale 7 to 10 Stop: 08/26/22 11:34 Last Admin: 07/27/22 15:46 Dose: 0.5 mg Hydromorphone HCl (Hydromorphone 0.5 Mg/0.5 Ml Syringe) 0.25 mg IVP Q3HR PRN PRN Reason: Pain Scale 4 to 6 Stop: 08/26/22 11:34 Lactated Ringer's (Lactated Ringers) 1,000 mls @ 20 mls/hr IV .Q24H [facility] Stop: 08/26/22 06:05 Last Admin: 07/28/22 03:49 Dose: Not Given Sodium Chloride (Saline 0.9%) 1,000 mls @ 70 mls/hr IV .[id number] [facility] Stop: 08/26/22 11:46 Last Admin: 07/28/22 03:49 Dose: 70 mls/hr Lidocaine HCl (Lidocaine 1% (10mg/Ml) For Iv Start) 0.1 ml INTRADERMA PER PROTOCOL PRN PRN Reason: IV Start Stop: 08/26/22 06:05 Lisinopril (Lisinopril 10 Mg Tab) 10 mg PO QAM [facility] Last Admin: 07/28/22 08:50 Dose: Not Given Magnesium Hydroxide (Magnesium Hydroxide 2,400 Mg/10 Ml Cup) 2,400 mg PO DAILY PRN PRN Reason: Constipation Stop: 08/26/22 11:34 Naloxone HCl (Naloxone 0.4 Mg/Ml 1 Ml Vial) 0.2 mg IV Q2M PRN PRN Reason: Opioid Reversal Stop: 08/26/22 11:34 Ondansetron HCl (Ondansetron 4 Mg/2 Ml Vial) 4 mg IVP Q8H PRN PRN Reason: Nausea And Vomiting Stop: 08/26/22 11:34 Senna/Docusate Sodium (Sennosides-Docusate Sodium 1 Each Tab) 2 each PO HS [facility] Stop: 08/26/22 21:01 Last Admin: 07/27/22 19:51 Dose: 2 each Past medical history to include: Hypertension, hyperlipidemia, osteoarthritis Social history: Lives alone. No smoking or alcohol. Physical examination: VITAL SIGNS: 97.9, 76, 18, 110/68, 97% room air GENERAL: Up in a chair, comfortable. EYES: Pupils equal. Conjunctiva normal. HEENT: External appearance of nose and ears normal, oral cavity grossly normal. NECK: JVD not raised; masses not palpable. HEART: First and second heart sounds are normal; no edema. LUNGS: Respiratory rate normal; clear to auscultation. ABDOMEN: Soft, nontender, liver spleen not palpable, no masses palpable. PSYCH: Alert and oriented x3; mood and affect normal. MUSCULOSKELETAL:No Clubbing/cyanosis;muscles-grossly intact. OA. Dressing over incision site left hip. INVESTIGATIONS, reviewed in the clinical context: July 28: White count 8.9 hemoglobin 12.6 platelets 277 White count 6.7 hemoglobin 14.8 platelets 213 sodium 140 potassium 5. 21.4 creatinine 0.9 Assessment and plan: -Left total hip arthroplasty. Aspirin for DVT prophylaxis. Pain control. -Primary osteoarthritis Pain medications as needed -Obesity BMI 33.3 Weight loss measures -Essential hypertension Prinivil 10 mg a day, resume a systolic blood pressure above 130 systolic -Hyperlipidemia Zocor 20 mg daily at bedtime Discuss. Parameters given for resumption of Prinivil. Discussed with patient. Follow-up PCP upon discharge. Thank you Dr. Rogers
[2022-07-28] MEDS: SENNOSIDES-DOCUSATE SODIUM 1 EACH TAB PO SCH (20:30)
[2022-07-28] MEDS: ATORVASTATIN 10 MG TAB PO SCH (20:31)
[2022-07-29] MEDS: HYDROcodone/APAP 7.5-325MG 1 EACH TAB PO PRN ×2 (02:18→09:25)
[2022-07-29] MEDS: LACTATED RINGERS 1,000 ML IV SCH (05:46)
[2022-07-29] MEDS: SODIUM CHLORIDE 0.9% 1,000 ML IV SCH (05:46)
[2022-07-29 08:10] VITALS: BP 127/78; PULSE 82; RESP 18; TEMP 98
[2022-07-29] MEDS: lisinopriL 10 MG TAB PO SCH (09:24)
[2022-07-29] MEDS: ASPIRIN 325 MG TAB PO SCH (09:25)
--- NOTE | 2022-07-29 11:19 | P.DS ---
Providers Date of admission: 07/28/22 08:05 Expected date of discharge: 07/29/22 Attending physician: Kei Rogers Consults: 07/27/22 11:33 Consult Physician Routine Consulting Provider: Axel Rush Consult Reason/Comments: medical management Do you want consulting provider notified?: Yes Primary care physician: Shelly Daughertyel - Discharge Diagnosis(es) (1) Osteoarthritis of left hip Current Visit: Yes Status: Acute (2) S/P total left hip arthroplasty Current Visit: Yes Status: Acute Hospital Course: This is a 77-year-old female with known history of degenerative arthritis of the left hip. The patient presented for evaluation as an outpatient. After discussion and consideration patient elects to proceed with total hip arthroplasty. The patient is seen preoperatively by Dr. Rogers and medically cleared for surgery by their primary care physician. Patient is admitted to [facility] on 07/27/2022 for total hip arthroplasty. The procedure is performed without complication or sequelae. The patient is doing well postoperatively. Labs and vital signs are stable on day of discharge. On day of discharge patient's hip incision is healing well. There is minimal erythema. There is no drainage noted at this time. There is minimal soft tissue swelling to the hip and thigh. Patient has full foot and ankle motion without difficulty or pain. Calf is soft and nontender to palpation. Neurovascular status to the left lower extremity is intact. Patient is discharged home in good condition. Please see med rec for accurate list of home medications. Plan - Discharge Summary Discharge Rx Participant: No New Discharge Prescriptions: New Sennosides [Senokot] 2 tab PO DAILY PRN #60 tablet PRN Reason: Constipation Aspirin 325 mg PO BID #60 tab HYDROcodone/APAP 7.5-325MG [[place] 7.5-325] 1 - 2 tab PO Q6H PRN #32 tab PRN Reason: Pain Continue Simvastatin [Zocor] 20 mg PO HS lisinopriL [Prinivil] 10 mg PO QAM Discharge Medication List Simvastatin [Zocor] 20 mg PO HS 11/04/20 [History] lisinopriL [Prinivil] 10 mg PO QAM 11/04/20 [History] Aspirin 325 mg PO BID #60 tab 07/27/22 [Rx] HYDROcodone/APAP 7.5-325MG [[place] 7.5-325] 1 - 2 tab PO Q6H PRN #32 tab 07/27/22 [Rx] Sennosides [Senokot] 2 tab PO DAILY PRN #60 tablet 07/27/22 [Rx] Follow up Appointment(s)/Referral(s): Shelly Estrada DO [Primary Care Provider] - 08/05/22 2:30 pm [facility] [[facility]STA[facility]] - 1-2 Days ([facility] will call you to schedule your in home physical therapy appointments. ) Kei Rogers DO [Doctor of Osteopathic Medicine] - 08/06/22 9:45 am (With Ana M) Activity/Diet/Wound Care/Special Instructions: Weightbearing as tolerated with walker. Leave dressing intact. Dressing may be removed by home care nurse or by patient in 7 days. Then change dressing twice daily until follow up. May shower with initial dressing intact and after removal. If dressing become saturated, please remove. Please take aspirin 325mg twice daily for 30 days to prevent blood clots. Recommend use of compression stockings daily until follow up to help prevent swelling and blood clots. May remove at night before sleeping. Please follow[facility]up with [facility] 2 weeks and call with any questions or concerns, . Daily a.m. blood pressure check in the morning. Resume lisinopril when systolic blood pressure above 1:30 Discharge Disposition: HOME WITH HOME HEALTH SERVICES
--- NOTE | 2022-07-29 14:13 | P.PN ---
Progress Note - Text Progress Note Date: 07/29/22 - Chief Complaint Left hip surgery Hospital course: This is a pleasant 77-year-old patient follows Dr. Shelly Estrada. Chronic stable medical conditions include hypertension, hyperlipidemia, osteoarthritis of other joints. Patient today underwent left total hip arthroplasty. Postprocedure pain is controlled. Laying in bed. No nausea vomiting. No chest pain. Did tolerate a light supper. 07/28/2022: Sitting up in a chair. Did walk to the bathroom. Did feel a bit dizzy this morning. Lisinopril was held. No chest pain. Had a breakfast. No nausea vomiting. If patient is discharged to check her blood pressure every morning. Resume lisinopril when systolic blood pressure above 1:30. 07/29/2022: Up in a chair. Did ambulate. Feeling better. Eating well. take blood pressure daily. Questions answered. Parametria for lisinopril discussed 1:30 Medications reviewed Past medical history to include: Hypertension, hyperlipidemia, osteoarthritis Social history: Lives alone. No smoking or alcohol. Physical examination: VITAL SIGNS: 98, 82, 18, 127/78, 95% room air GENERAL: Up in a chair, comfortable. EYES: Pupils equal. Conjunctiva normal. HEENT: External appearance of nose and ears normal, oral cavity grossly normal. NECK: JVD not raised; masses not palpable. HEART: First and second heart sounds are normal; no edema. LUNGS: Respiratory rate normal; clear to auscultation. ABDOMEN: Soft, nontender, liver spleen not palpable, no masses palpable. PSYCH: Alert and oriented x3; mood and affect normal. MUSCULOSKELETAL:No Clubbing/cyanosis;muscles-grossly intact. OA. Dressing over incision site left hip. INVESTIGATIONS, reviewed in the clinical context: July 28: White count 8.9 hemoglobin 12.6 platelets 277 White count 6.7 hemoglobin 14.8 platelets 213 sodium 140 potassium 5. 21.4 creatinine 0.9 Assessment and plan: -Left total hip arthroplasty. Aspirin for DVT prophylaxis. Pain control. -Primary osteoarthritis Pain medications as needed -Obesity BMI 33.3 Weight loss measures -Essential hypertension Prinivil 10 mg a day, resume a systolic blood pressure above 130 systolic -Hyperlipidemia Zocor 20 mg daily at bedtime Discussed. Follow with PCP. Questions answered Thank you Dr. Rogers
== END 2022-07-29 13:10 | disposition home health service (06) ==
LOC: OR 09:39 → 4SSUR 13:34 → OR 07-28 08:05
PROVIDERS: ADMIT Orthopaedic Surgery; ATTEND Orthopaedic Surgery
DX: M16.12 Unilateral primary osteoarthritis, left hip (principal); I10 Essential (primary) hypertension; E78.5 Hyperlipidemia, unspecified; R26.81 Unsteadiness on feet; E66.9 Obesity, unspecified; Z68.33 Body mass index [BMI] 33.0-33.9, adult; Z96.641 Presence of right artificial hip joint; Z90.49 Acquired absence of other specified parts of digestive tract; Z98.891 History of uterine scar from previous surgery; Z82.49 Family history of ischemic heart disease and other diseases of the circulatory system; Z97.3 Presence of spectacles and contact lenses; Z98.890 Other specified postprocedural states; Z79.899 Other long term (current) drug therapy; Z79.82 Long term (current) use of aspirin; Z91.048 Other nonmedicinal substance allergy status
CPT/HCPCS: 97116; 97161; 97166; 64447; 76942; 86900; 86901; 85025; 86850; 88300; 73501; 27130; G0378 ×2; C1776; J2250; J1100; J0690 ×3; J2405; J3010 ×2; J2795; J2370; J2704; J1170

== ENCOUNTER → 2023-07-14 | Outpatient (CLI) | payer MEDICARE ==
--- NOTE | 2023-07-15 22:44 | CT ---
EXAMINATION TYPE: CT right knee - [facility] Protocol DATE OF EXAM: 07/14/2023 COMPARISON: HISTORY: PAIN/PREOP CT DLP: 838 mGycm Automated exposure control for dose reduction was used. Contrast: None Technique: [facility] presurgical planning of the right knee. Images were obtained in the axial plane at 2 mm thick sections through the hip and ankle and 1 mm thick sections through the knee. Reconstructed i mages in the coronal and sagittal plane are reviewed. FINDINGS: Hip: There is a right hip prosthesis. Knee: There is a small joint effusion present. Patellofemoral joint space narrowing is present. There is loss of the medial compartment joint spaces. Narrowing of the lateral compartment joint space is present. Medial and lateral femoral condylar spurring and medial and lateral tibial plateau spurring is present Ankle: Ankle mortise appears intact. IMPRESSION: 1. CT for [facility] knee presurgical planning.
== END | disposition home or self-care (01) ==
LOC: RADCTMAIN 13:09
PROVIDERS: ATTEND Orthopaedic Surgery
DX: Z01.818 Encounter for other preprocedural examination (principal); M17.0 Bilateral primary osteoarthritis of knee; M25.561 Pain in right knee

== ENCOUNTER → 2023-07-25 | Outpatient (CLI) | payer MEDICARE ==
[2023-07-25 10:05] LABS: INR 0.9 (<1.2); Partial Thromboplastin Time 27.7 sec (22.0-30.0); Prothrombin Time 9.9 sec (10.0-12.5)
[2023-07-25 18:48] LABS: HCT 43.9 % (37.2-46.3); HGB 14.1 g/dL (12.0-15.0); MCH 29.7 pg (27.0-32.0); MCHC 32.1 g/dL (32.0-37.0); MCV 92.4 FL (80.0-97.0); Mean Platelet Volume 11.5 FL (9.5-12.2); NRBC Per 100 WBC 0 X 10*3/uL (0.00-0.01); Platelet Count 269 X 10*3/uL (140-440); RBC 4.75 X 10*6/uL (4.10-5.20); RDW 12.7 % (11.5-14.5); WBC 5.06 X 10*3/uL (4.50-10.00)
[2023-07-25 19:08] LABS: ALT 19 U/L (8-44); AST 23 U/L (13-35); Albumin 4.4 g/dL (3.8-4.9); Albumin/Globulin Ratio 1.63 Ratio (1.60-3.17); Alkaline Phosphatase 90 U/L (41-126); BUN/Creat Ratio 19.62 Ratio (12.00-20.00); Blood Urea Nitrogen 15.7 mg/dL (9.0-27.0); Calcium 9.7 mg/dL (8.7-10.3); Carbon Dioxide 21.7 mmol/L (21.6-31.8); Chloride 105 mmol/L (96-109); Globulin 2.7 g/dL (1.6-3.3); Glucose 112 mg/dL (70-110); Sodium 139 mmol/L (135-145); Total Bilirubin 0.6 mg/dL (0.3-1.2); Total Protein 7.1 g/dL (6.2-8.2)
== END | disposition home or self-care (01) ==
LOC: LABPAT 09:25
PROVIDERS: ATTEND Orthopaedic Surgery
DX: Z01.818 Encounter for other preprocedural examination (principal); Z22.322 Carrier or suspected carrier of Methicillin resistant Staphylococcus aureus
CPT/HCPCS: 36415; 80053; 83036; 85027; 85610; 85730; 87070; 93005

== ENCOUNTER 2023-08-19 08:53 | Day surgery (SDC) | payer MEDICARE ==
[~2023-08-19 08:53] MED LIST changes: -ACETAMINOPHEN TAB 500 MG TAB PO PRN; -DEXAMETHASONE SOD PHOSPHATE 4 MG/ML 1 ML VIAL IV ONE; -GABAPENTIN 300 MG CAP PO PRN; -HYDROmorphone 0.5 MG/0.5 ML SYRINGE IVP PRN; -LIDOCAINE 1% (10MG/ML) FOR IV START INTRADERMA PRN; -MELOXICAM 7.5 MG TAB PO PRN; -ONDANSETRON 4 MG/2 ML VIAL IVP ONE; +TRANEXAMIC 1,000 MG/100ML-NACL 1,000 MG in SALINE 1 100ML.BAG IV PRN; +TRANEXAMIC 1,000 MG/100ML-NACL 1,000 MG in SALINE 1 100ML.BAG IVPB PRN; -TRANEXAMIC ACID IN NACL,ISO-OS 1,000 MG in SALINE 1 100ML.BAG IVPB PRN
[2023-08-19] MEDS ORDERED: HYDROmorphone 0.5 MG/0.5 ML SYRINGE IVP PRN ×2 (09:17→12:16)
[2023-08-19] MEDS ORDERED: LIDOCAINE 1% (10MG/ML) FOR IV START INTRADERMA PRN (09:17)
[2023-08-19] MEDS: ACETAMINOPHEN TAB 500 MG TAB PO PRN (09:37)
[2023-08-19] MEDS: LACTATED RINGERS 1,000 ML IV SCH (09:37)
[2023-08-19] MEDS: oxyCODONE ER 10 MG TAB.ER.12H PO PRN (09:37)
[2023-08-19] MEDS: DOCUSATE 100 MG CAP PO PRN (09:37)
[2023-08-19] MEDS: ONDANSETRON 4 MG/2 ML VIAL IVP PRN ×2 (09:55→16:13)
[2023-08-19] MEDS: KETOROLAC 15 MG/ML 1 ML VIAL IVP PRN (09:55)
[2023-08-19] MEDS: DEXAMETHASONE SOD PHOSPHATE 10 MG/ML 1 ML VIAL IV PRN (09:56)
[2023-08-19] MEDS: FAMOTIDINE 20 MG/2 ML VIAL IVP PRN (09:56)
[2023-08-19] MEDS: MIDAZOLAM 2 MG/2 ML VIAL IVP ONE (10:00)
[2023-08-19] MEDS ORDERED: LIDOCAINE 1% INJ 10MG/ML (20 ML MDV) ONE (10:14)
[2023-08-19] MEDS ORDERED: DEXAMETHASONE SOD PHOSPHATE 4 MG/ML 1 ML VIAL ONE (10:14)
[2023-08-19] MEDS ORDERED: GLYCOPYRROLATE 0.2 MG/ML 2 ML VIAL ONE (10:14)
[2023-08-19] MEDS ORDERED: ROPIVACAINE 5 MG/ML 30 ML VIAL ONE (10:14)
[2023-08-19] MEDS ORDERED: SUCCINYLCHOLINE CHLORIDE 200 MG/10 ML VIAL IV ONE (10:14)
[2023-08-19] MEDS ORDERED: TRANEXAMIC 1,000 MG/100ML-NACL PREMIX BAG ONE (10:14)
[2023-08-19] MEDS ORDERED: ePHEDrine 50 MG/ML 1 ML VIAL ONE (10:14)
[2023-08-19] MEDS ORDERED: NEOSTIGMINE 1 MG/ML 10 ML VIAL ONE (10:14)
[2023-08-19] MEDS ORDERED: ROCURONIUM 10 MG/ML (5 ML VIAL) IV ONE (10:14)
[2023-08-19] MEDS ORDERED: fentaNYL (PF) 50 MCG/ML 2 ML AMP ONE (10:14)
[2023-08-19] MEDS ORDERED: PROPOFOL 10 MG/ML 20 ML VIAL IV ONE (10:14)
[2023-08-19] MEDS ORDERED: HYDROmorphone (PF) 1 MG/ML ONE (10:14)
[2023-08-19] MEDS: ROPIVACAINE/EPI/CLONIDINE/KET 50 ML SYRINGE MISCELLANE PRN (10:47)
[2023-08-19] MEDS ORDERED: MAGNESIUM HYDROXIDE 2,400 MG/30 ML CUP PO PRN (12:16)
[2023-08-19] MEDS ORDERED: NALOXONE 0.4 MG/ML 1 ML VIAL IV PRN (12:16)
[2023-08-19] MEDS ORDERED: bisacodyL 10 MG SUPP RECTAL PRN (12:16)
--- NOTE | 2023-08-19 12:16 | P.OP ---
Date of Procedure: 08/19/23 Preoperative Diagnosis: severe right knee osteoarthritis Postoperative Diagnosis: same Procedure(s) Performed: 1. Right total knee arthroplasty 2. Computer assisted musculoskeletal navigation using CT/MRI images Implants: 1. [place] Triathlon CR Femur Size #3 2. Fan Triathlon [place] Tibial Base Size #4 3. [place] Triathlon CS poly Size #9 4. [place] Triathlon all poly patella, Size #29 Anesthesia: MYRAA, regional Surgeon: Wade Mckeon Binding End Stitcher #1: Jacinto Littlejohn Estimated Blood Loss (ml): 100 IV fluids (ml): 800 Pathology: none sent Condition: stable Disposition: PACU Indications for Procedure: I met with the patient preoperatively in the office setting and discussed treatment of their symptomatic knee arthritis. They failed a long course of nonsurgical treatment and elected to proceed with an elective total knee replacement. I discussed the potential risks and complications at length and gave them ample time to ask questions. Risks discussed included: risks from anesthesia, superficial site surgical infection, acute and/or chronic periprosthetic joint infection, delayed wound healing, drainage, wound necrosis, instability, stiffness, stiffness requiring manipulation and/or revision surgery, damage to local blood vessels or nerves, aseptic loosening of the implants, extensor mechanism issues including disruption, patellar maltracking, avascular necrosis etc., continued or worsened knee pain, generalized dissatisfaction with surgical outcome, need for revision surgery, an inability to regain preinjury level of function, DVT, PE, other medical complications, and possibly loss of life or limb. The patient voiced their understanding that while these are the most common complications other less common complications are possible. They provided both their verbal and written consent to go forward with surgery. Description of Procedure: The patient was identified in preoperative holding and the correct operative extremity was verified and marked with a marker. I reviewed the consent form with the patient at length. All of their questions were answered. The patient was given a block by anesthesia. They were then brought back to the operating room. They were transferred onto the operating room table where a general anesthetic, preoperative antibiotics, and tranexamic acid were administered by anesthesia. A tourniquet was applied to the proximal aspect of the operative extremity. The contralateral extremity was padded under the heel and secured to the operating room table with a nonsterile blue towel and tape. The ipsilateral arm was carefully draped across the patient's chest and secured with a pillow and foam. A post was applied over the lateral aspect of the ipsilateral thigh and a bolster was placed under the ipsilateral foot. I verified that the operative extremity was stable and the knee was flexed to 90. The operative extremity was then placed in a leg bey, nonsterile drapes were applied, and the extremity was prepped and draped sterilely in the standard sterile fashion. Prior to starting surgery timeout was performed identifying the correct patient, operative extremity, and procedure. The leg was then elevated, exsanguinated with an Esmarch bandage, and the tourniquet was inflated. An anterior midline incision was made sharply with a scalpel. Once I had dissected deep to the superficial fascial layer medial and lateral flaps were elevated. A medial parapatellar arthrotomy was created. Upon opening the knee joint there were diffuse arthritic changes in all 3 compartments. The anterior horn of the medial meniscus were sharply released and a medial release was performed around the posterior medial corner of the knee to facilitate retractor placement. The fat pad was excised with electrocautery. The patella was found to be severely arthritic and a provisional cut was made with a sagittal saw to facilitate mobilization of the extensor mechanism during the procedure. Remna nts of the ACL and PCL were then excised from the notch. 4 mm pins were then placed within the incision in the medial distal femur and proximal tibia. Arrays were applied to the pins and I verified they were completely tightened. The knee was then registered with the [employer] robot and manipulations in implant position were made to balance the knee and opitmize implant position. Using the Brandon robotic saw all cuts were made in accordance with our plan. After all bony fragments had been removed the cuts were verified with the planar probe. The tibia was then subluxed forward and sized. The knee was brought into flexion and a lamina business supervisor was placed to allow removal of the meniscal remnants both medially and laterally as well as posterior osteophytes. Local anesthetic was then infiltrated around the joint capsule. Trial implants were then placed within the knee. Range of motion and collateral ligament tension was then evaluated. Adjustments in implant size and position were then made accordingly. Once the knee was felt to be appropriately balanced the Brandon pins were removed. The patella was then recut, sized, and punched. A trial patellar button was then placed. With the trial components in place, the patella tracked midline. The femur was then drilled and the trial component removed. The trial tibial component was then appropriately rotated, pinned, and prepared for the keel. All trial components were then removed from the knee. The knee was thoroughly irrigated with pulsatile lavage. Cement was prepared via vacuum mixing in a bowl on the back table. I then hand pressurized cement into the femur and tibia and placed the implants beginning with the tibial base tray and poly liner, femoral component, and finally the patellar button. All extruded cement was removed including from the pin sites. Once the cement had hardened the knee was evaluated one final time with the final polyethylene liner in place. The knee had full extension and flexion and felt stable to varus and valgus stress throughout the arc of motion. The tourniquet was released and with the tourniquet down the patella tracked midline. All bleeders were controlled with electrocautery. The knee was then soaked for 3 minutes with a dilute Betadine soak. The knee was thoroughly irrigated using 3 L of sterile saline and pulsatile lavage. The extensor mechanism was then reapproximated using pop off Vicryl sutures followed by a running barbed suture. The knee was then closed in layers with a 0 strata fix for the deep fascial layer, 2-0 strata fix for the superficial subcutaneous layer and Monocryl and Steri-Strips for the skin. A sterile dressing was applied. I verified that all instrument, sponge, and sharp counts were correct. The patient was then transferred off the operating room table, extubated, and brought to recovery having tolerated the procedure well. Matthew BERMUDEZ was required as a skilled refinery operator assistant due to the complexity of surgery for patient positioning, draping, exposure, retraction, closure of wound, and application of dressing. PLAN: The patient can weight-bear as tolerated on the operative extremity. DVT prophylaxis with aspirin 81 mg twice a day based on preoperative risk stratification. Internal medicine for perioperative medical management. 2 doses of post-operative antibiotics. Physical therapy for gait training. Follow-up in the office in 2 weeks for wound check and x-rays of the knee including an AP and lateral.
--- NOTE | 2023-08-19 12:41 | XR ---
EXAMINATION TYPE: XR knee limited RT DATE OF EXAM: 08/19/2023 COMPARISON: None HISTORY: Postop knee replacement TECHNIQUE: AP and lateral views right knee FINDINGS: Tibial and femoral components in place. No acute fracture or dislocation is evident. Postsu rgical soft tissue changes are evident. IMPRESSION: 1. No acute fracture post knee replacement
[2023-08-19] MEDS: SODIUM CHLORIDE 0.9% 1,000 ML IV SCH (14:45)
--- NOTE | 2023-08-19 16:30 | P.CONS ---
History of Present Illness - Reason for Consult Consult date: 08/19/23 - History of Present Illness Patient is a 78-year-old female with history of hypertension, dyslipidemia, GERD presenting for elective right total knee arthroplasty. [facility] physicians has been consulted for medical management. Currently temperature is 97.5, pulse 68, respiratory rate 18, blood pressure 109/73, saturating at 92% on room air. No other labs available, most recent labs from July were unremarkable. Knee x-ray postoperative did not show any acute fracture. Patient currently denies any chest pain, shortness of breath, abdominal pain, nausea, vomiting, urinary or bowel complaints. Pertinent positives and negatives as discussed in HPI, a complete review of systems was performed and all other systems are negative. Patient seen and examined at bedside. Vital signs reviewed General: nontoxic, no distress, appears at stated age Derm: warm, dry, knee dressing clean, dry, intact Head: atraumatic, normocephalic, symmetric Eyes: EOMI, no lid lag, anicteric sclera, pupils equal round reactive to light ENT: Nose and ears atraumatic Neck: No thyromegaly, supple Mouth: no lip lesion, mucus membranes moist Cardiovascular: S1S2 reg, no murmur, no edema Lungs: clear to auscultation bilateral, no rhonchi, no rales, no wheeze, no accessory muscle use Abdominal: soft, nontender to palpation, no guarding, no appreciable organomegaly Ext: no gross muscle atrophy, muscle strength muscle strength 5 out of 5 in all 4 extremities, no contractures Neuro: CN II-XII grossly intact Psych: Alert, oriented, appropriate affect Assessment/Plan: Active: Status post right total knee arthroplasty - Oral Brook as needed, IV Dilaudid as needed, monitor for sedation - Senna 2 at night, bisacodyl rectal suppository as needed, magnesium hydroxide daily as needed - Aspirin 81 twice daily for DVT prophylaxis - Okay to continue normal saline at 100 cc an hour - CBC and BMP pending for tomorrow Hypertension - continue lisinopril 10 mg daily Dyslipidemia - continue simvastatin 20 at night Thank you for allowing us to participate in the care of this pleasant patient. Do not hesitate to contact us with questions. Someone can be reached from the [facility] hospitalist group all hours of the day at [phone] or via [employer]. Past Medical History Past Medical History: Hyperlipidemia, Hypertension, Osteoarthritis (OA) Additional Past Medical History / Comment(s): wears brace on rt leg from ball of foot to knee with hinge on ankle area @times for drop foot History of Any Multi-Drug Resistant Organisms: None Reported Past Surgical History: Section, Cholecystectomy, Joint Replacement, Tonsillectomy Additional Past Surgical History / Comment(s): kelly cataracts with implants, kelly hips replaced, Right knee replacement. Past Anesthesia/Blood Transfusion Reactions: No Reported Reaction Past Psychological History: No Psychological Hx Reported Smoking Status: Never smoker Past Alcohol Use History: None Reported Past Drug Use History: None Reported - Past Family History Mother Family Medical History: No Reported History Medications and Allergies Home Medications Medication Instructions Recorded Confirmed Type Simvastatin [Zocor] 20 mg PO HS 11/04/20 08/19/23 History lisinopriL [Prinivil] 10 mg PO QAM 11/04/20 08/19/23 History Acetaminophen [Tylenol] 325 mg PO Q4H PRN 08/15/23 08/19/23 History Aspirin 81 mg PO BID #60 tab 08/19/23 Rx Diclofenac Sodium [Voltaren] 75 mg PO BID #60 tab 08/19/23 Rx Docusate [Colace] 100 mg PO BID #28 capsule 08/19/23 Rx HYDROcodone/APAP 5-325MG [Brook 1 - 2 tab PO Q6HR PRN #32 tab 08/19/23 Rx 5-325] Omeprazole 40 mg PO DAILY #30 cap 08/19/23 Rx Allergies Allergy/AdvReac Type Severity Reaction Status Date / Time povidone-iodine AdvReac Itching Verified 08/19/23 09:18 [From Betadine] Physical Exam Vitals: Vital Signs Temp Pulse Pulse Resp BP BP Pulse Ox 08/19/23 14:32 97.5 F L 68 18 109/74 93 L 08/19/23 13:30 65 16 124/53 93 L 08/19/23 13:15 66 16 128/61 92 L 08/19/23 13:00 70 16 126/57 96 08/19/23 12:45 78 16 124/54 98 08/19/23 12:30 80 16 113/66 98 08/19/23 12:24 70 16 117/61 98 08/19/23 12:08 97.1 F L 82 16 135/67 97 08/19/23 10:07 75 16 150/72 97 08/19/23 09:19 97.0 F L 61 18 141/68 98 Intake and Output 08/19/23 08/19/23 08/19/23 06:59 14:59 22:59 Intake Total 800 Output Total 100 Balance 700 Intake: IV 800 Output: Estimated Blood Loss 100 Other: # Voids 1 Weight 88.7 kg
[2023-08-19] MEDS: HYDROcodone/APAP 5-325MG 1 EACH TAB PO PRN (17:47)
[2023-08-19] MEDS: SENNOSIDES-DOCUSATE SODIUM 1 EACH TAB PO SCH (20:50)
[2023-08-19] MEDS: ATORVASTATIN 10 MG TAB PO SCH (20:51)
[2023-08-19] MEDS: ASPIRIN 81 MG PO SCH (20:51)
[2023-08-20] MEDS: HYDROcodone/APAP 10-325MG 1 EACH TAB PO PRN (01:36)
[2023-08-20 07:09] LABS: African American GFR (CKD) 87 (>60 ml/min/1.73 sqM); Anion Gap 6 mmol/L; Blood Urea Nitrogen 20 mg/dL (7-17); Carbon Dioxide 21 mmol/L (22-30); Chloride 109 mmol/L (98-107); Glucose 130 mg/dL (74-99); Non-African American GFR(CKD) 76 (>60 ml/min/1.73 sqM); Potassium 4.6 mmol/L (3.5-5.1); Sodium 136 mmol/L (137-145)
--- NOTE | 2023-08-20 07:51 | P.PN ---
Subjective Progress Note Date: 08/20/23 This morning the patient is doing well. She has mild discomfort in the posterior aspect of her knee but is otherwise doing well. She denies chest pain or shortness of breath. She has been up several times walking on the knee without difficulty. Objective - Vital Signs Vital signs: Vital Signs Temp 97.6 F 08/20/23 02:00 Pulse 70 08/20/23 02:00 Resp 18 08/20/23 02:00 BP 124/73 08/20/23 02:00 Pulse Ox 95 08/20/23 02:00 FiO2 Intake & Output 08/19/23 08/20/23 08/20/23 18:59 06:59 18:59 Intake Total 800 Output Total 100 1 Balance 700 -1 Weight 88.7 kg Intake: IV 800 Output: Urine 1 Estimated Blood Loss 100 Other: Voiding Method Toilet # Voids 1 1 - Exam The patient is resting comfortably in the bed. A focused examination of the operative leg was conducted. On inspection there is a clean-appearing dressing over the knee. There is no drainage or strike through. The thigh and calf are soft. Femoral nerve function is intact. Motor and sensory function are intact in the foot and ankle. The tips of the toes are warm and well perfused with brisk capillary refill. - Labs CBC & Chem 7: 08/20/23 06:10 Labs: Abnormal Lab Results - Last 24 Hours (Table) 08/20/23 Range/Units 06:10 Sodium 136 L (137-145) mmol/L Chloride 109 H (98-107) mmol/L Carbon Dioxide 21 L (22-30) mmol/L BUN 20 H (7-17) mg/dL Glucose 130 H (74-99) mg/dL Assessment and Plan Assessment: Postoperative day #1 status post total knee replacement, doing well Plan: 1. Weightbearing as tolerated on the operative extremity. Up with assistance. 2. DVT prophylaxis with aspirin 81 mg twice a day 3. Physical therapy for gait training and mobilization 4. Internal medicine for perioperative medical management 5. PT for gait training 6. Disposition: The patient lives alone but has a daughter that is coming late this evening to stay with her. We will plan on keeping her until tomorrow And if she does well we'll discharge her home.
[2023-08-20] MEDS: lisinopriL 10 MG TAB PO SCH (08:57)
[2023-08-20 09:41] LABS: Basophils # (A) 0.01 X 10*3/uL (0.00-0.10); Basophils % (A) 0.1 %; Eosinophils # (A) 0 X 10*3/uL (0.04-0.35); Eosinophils % (A) 0 %; HCT 35.2 % (37.2-46.3); HGB 11.3 g/dL (12.0-15.0); Lymphocytes # (A) 1.04 X 10*3/uL (0.90-5.00); Lymphocytes % (A) 8.3 %; MCH 29.7 pg (27.0-32.0); MCHC 32.1 g/dL (32.0-37.0); MCV 92.6 FL (80.0-97.0); Mean Platelet Volume 10.8 FL (9.5-12.2); Monocytes # (A) 1.03 X 10*3/uL (0.20-1.00); Monocytes % (A) 8.2 %; NRBC Per 100 WBC 0 X 10*3/uL (0.00-0.01); Neutrophils # (A) 10.46 X 10*3/uL (1.80-7.70); Neutrophils % (A) 83.1 %; Platelet Count 204 X 10*3/uL (140-440); RDW 12.7 % (11.5-14.5); WBC 12.58 X 10*3/uL (4.50-10.00)
--- NOTE | 2023-08-20 15:46 | P.PN ---
Progress Note - Text Progress Note Date: 08/20/23 Hospital course: August 19: Patient follows with Dr. Estrada. I resumed care of the patient today. Patient status post right total knee arthroplasty. Some pain is present. Was dizzy yesterday. Better today. Did tolerate some diet. No chest pain or shortness of breath. Up in a recliner. Did walk some. Denies any respiratory or urinary symptoms. Incision healing well per Ortho Active Medications Hydrocodone Bitart/Acetaminophen (Hydrocodone/Apap 5-325mg 1 Each Tab) 1 each PO Q6HR PRN PRN Reason: Pain Scale 1 to 5 Stop: 09/18/23 12:17 Last Admin: 08/20/23 09:01 Dose: 1 each Hydrocodone Bitart/Acetaminophen (Hydrocodone/Apap 10-325mg 1 Each Tab) 1 each PO Q6H PRN PRN Reason: Pain Scale 6 to 10 Stop: 09/18/23 12:17 Last Admin: 08/20/23 01:36 Dose: 1 each Aspirin (Aspirin 81 Mg) 81 mg PO BID [facility] Stop: 09/18/23 21:01 Last Admin: 08/20/23 08:57 Dose: 81 mg Atorvastatin Calcium (Atorvastatin 10 Mg Tab) 10 mg PO HS [facility] Last Admin: 08/19/23 20:51 Dose: 10 mg Bisacodyl (Bisacodyl 10 Mg Supp) 10 mg RECTAL DAILY PRN PRN Reason: Constipation Stop: 09/18/23 12:17 Hydromorphone HCl (Hydromorphone 0.5 Mg/0.5 Ml Syringe) 0.5 mg IVP Q3HR PRN PRN Reason: Pain Scale 7 to 10 Stop: 09/18/23 12:17 Lactated Ringer's (Lactated Ringers) 1,000 mls @ 20 mls/hr IV .Q24H [facility] Stop: 09/18/23 09:18 Last Admin: 08/20/23 08:52 Dose: Not Given Sodium Chloride (Saline 0.9%) 1,000 mls @ 100 mls/hr IV .Q10H [facility] Stop: 09/18/23 12:31 Last Admin: 08/20/23 08:57 Dose: 100 mls/hr Lidocaine HCl (Lidocaine 1% (10mg/Ml) For Iv Start) 0.1 ml INTRADERMA PER PROTOCOL PRN PRN Reason: IV Start Stop: 09/18/23 09:18 Lisinopril (Lisinopril 10 Mg Tab) 10 mg PO QAM [facility] Last Admin: 08/20/23 08:57 Dose: 10 mg Magnesium Hydroxide (Magnesium Hydroxide 2,400 Mg/30 Ml Cup) 2,400 mg PO DAILY PRN PRN Reason: Constipation Stop: 09/18/23 12:17 Naloxone HCl (Naloxone 0.4 Mg/Ml 1 Ml Vial) 0.2 mg IV Q2M PRN PRN Reason: Opioid Reversal Stop: 09/18/23 12:17 Ondansetron HCl (Ondansetron 4 Mg/2 Ml Vial) 4 mg IVP Q8HR PRN PRN Reason: Nausea And Vomiting Stop: 09/18/23 12:17 Last Admin: 08/19/23 16:13 Dose: 4 mg Senna/Docusate Sodium (Sennosides-Docusate Sodium 1 Each Tab) 2 each PO HS [facility] Stop: 09/18/23 21:01 Last Admin: 08/19/23 20:50 Dose: 2 each On examination: VITAL SIGNS: [97.8, 68, 18, 123 x 76, 96% room air] GENERAL APPEARANCE: BMI 33.6. Sitting up in the recliner HEENT: Normal external appearance of nose and ear. Oral cavity normal EYES: Pupils equal. Conjunctiva normal. NECK: JVD not raised. Mass not palpable. RESPIRATORY: Respiratory effort normal. Lungs clear to auscultation. CARDIOVASCULAR: First and second sounds normal. No edema. ABDOMEN: Soft. Liver and spleen not palpable. No tenderness. No mass palpable. MUSCULOSKELETAL: Dressing over the right knee PSYCHIATRY: Alert and oriented x3. Mood and affect normal. INVESTIGATIONS, reviewed in the clinical context: August 19: White count 12.5 hemoglobin 11.3 platelets 204 sodium 136 potassium 4.6 BUN 20 creatinine 0.75 July 24: Hemoglobin 14.1 platelets 269 Assessment plan: -Right total knee arthroplasty Aspirin for DVT prophylaxis. Pain management. -Acute postprocedure blood loss anemia IV Ferrlecit x 2 doses Oral iron -Leukocytosis, reactive from surgery. No clinical evidence of infection. -Essential hypertension Zestril 10 mg a day -Hyperlipidemia Lipitor 10 mg nightly -Primary osteoarthritis Pain medications as needed Care was discussed with the patient. Questions answered. Thank you Dr. Mckeon
[2023-08-20] MEDS: SODIUM FERRIC GLUCONAT-SUCROSE 125 MG in SODIUM CHLORIDE 0.9% 100 ML IVPB SCH (17:54)
[2023-08-20] MEDS: FERROUS SULFATE 325 MG TAB PO SCH (17:54)
[2023-08-21 08:29] VITALS: BP 136/65; PULSE 65; RESP 17; TEMP 98.7
--- NOTE | 2023-08-21 08:33 | P.DS ---
Providers Date of admission: Tuesday08/19/2023 Attending physician: Wade Mckeon Consults: 08/19/23 12:16 Consult Physician Routine Consulting Provider: Axel Rush Consult Reason/Comments: medical management Do you want consulting provider notified?: Yes Primary care physician: Shelly Duong [facility] Course: The patient is very pleasant relatively healthy 78-year-old female who is admitted under my care at this past Tuesday. She was taken to the operating room where a total knee was performed. Following on computed surgery she was transferred to the orthopedic floor. She received 2 doses of IV antibiotics. She was transitioned from IV to oral pain medication. She was treated with aspirin for deep for DVT prophylaxis. She worked with physical therapy. Internal medicine consulted and assisted with perioperative medical management. She was seen on postoperative day #2 and was doing well. Her dressing was intact with no drainage or strike through. She had motor and sensation function intact throughout the leg. She was cleared for discharge home. Plan - Discharge Summary Discharge Rx Participant: No New Discharge Prescriptions: New Docusate [Colace] 100 mg PO BID #28 capsule Diclofenac Sodium [Voltaren] 75 mg PO BID #60 tab Aspirin 81 mg PO BID #60 tab HYDROcodone/APAP 5-325MG [Charlotte 5-325] 1 - 2 tab PO Q6HR PRN #32 tab PRN Reason: Pain Omeprazole 40 mg PO DAILY #30 cap No Action Simvastatin [Zocor] 20 mg PO HS Acetaminophen [Tylenol] 325 mg PO Q4H PRN PRN Reason: Pain lisinopriL [Prinivil] 10 mg PO QAM Discharge Medication List Simvastatin [Zocor] 20 mg PO HS 11/04/20 [History] lisinopriL [Prinivil] 10 mg PO QAM 11/04/20 [History] Acetaminophen [Tylenol] 325 mg PO Q4H PRN 08/15/23 [History] Aspirin 81 mg PO BID #60 tab 08/19/23 [Rx] Diclofenac Sodium [Voltaren] 75 mg PO BID #60 tab 08/19/23 [Rx] Docusate [Colace] 100 mg PO BID #28 capsule 08/19/23 [Rx] HYDROcodone/APAP 5-325MG [Charlotte 5-325] 1 - 2 tab PO Q6HR PRN #32 tab 08/19/23 [Rx] Omeprazole 40 mg PO DAILY #30 cap 08/19/23 [Rx] Follow up Appointment(s)/Referral(s): [facility], [NON-STAFF] - 1-2 Days Wade Mckeon MD [Medical Doctor] - 2 Weeks Activity/Diet/Wound Care/Special Instructions: 1. Weight-bear as tolerated on your operative extremity unless instructed otherwise. Use a walker or other assistive device to ambulate. 2. Leave surgical dressing in place. If your dressing becomes saturated with blood, there is drainage, or the dressing becomes loose please contact the office. 3. It is okay to shower with your surgical dressing, but do not submerge in water (no hot tubs, bath's, swimming etc.) 4. Make sure to take her blood clot prevention medication as prescribed (aspirin, Eliquis, Xarelto, and Plavix are commonly prescribed medications for blood clot prevention) 5. While taking Charlotte or Percocet for pain make sure you're taking a stool softener (Colace) and drink lots of water. 6. Keep all follow-up appointments as scheduled. You will usually be seen in 1-2 weeks following surgery. 7. Please contact the office with any questions or concerns [phone] Discharge Disposition: HOME WITH HOME HEALTH SERVICES
--- NOTE | 2023-08-21 10:29 | P.ANPRN ---
Procedure Note - Anesthesia - Nerve Block Performed Left Adductor Canal Single Time Out Performed: Yes Date of Procedure: 08/19/23 Procedure Start Time: 10:00 Procedure Stop Time: 10:02 Location of Patient: PreOp Indication: Acute Post-Operative Pain, Requested by Surgeon Sedation Type: Sedate with meaningful contact maintained Preparation: Sterile Prep Position: Supine Needle Types: Pajunk Needle Gauge: 21 Ultrasound used to visualize needle placement: Yes Ultrasound used to observe medication spread: Yes Blood Aspirated: No Pain Paresthesia on Injection Noted: No Resistance on Injection: Normal Image Stored and Saved: Yes Events: Uneventful and Well Tolerated (Ropivacaine 0.5% 20 cc plus dexamethasone 4 mg)
--- NOTE | 2023-08-21 10:30 | P.ANPRN ---
Procedure Note - Anesthesia - Nerve Block Performed Left iPack Single Time Out Performed: Yes Date of Procedure: 08/19/23 Procedure Start Time: 10:03 Procedure Stop Time: 10:04 Location of Patient: PreOp Indication: Acute Post-Operative Pain, Requested by Surgeon Sedation Type: Sedate with meaningful contact maintained Preparation: Sterile Prep Position: Supine Needle Types: Pajunk Needle Gauge: 21 Ultrasound used to visualize needle placement: Yes Ultrasound used to observe medication spread: Yes Blood Aspirated: No Pain Paresthesia on Injection Noted: No Resistance on Injection: Normal Image Stored and Saved: Yes Events: Uneventful and Well Tolerated (Ropivacaine 0.5% 20 cc plus dexamethasone 4 mg)
== END 2023-08-21 11:07 | disposition home health service (06) ==
LOC: OR 08:53 → 4SSUR 12:00 → OR 08-21 11:07
PROVIDERS: ATTEND Orthopaedic Surgery
DX: M17.11 Unilateral primary osteoarthritis, right knee (principal); M25.761 Osteophyte, right knee; M25.461 Effusion, right knee; G89.18 Other acute postprocedural pain; I10 Essential (primary) hypertension; E78.5 Hyperlipidemia, unspecified; F10.90 Alcohol use, unspecified, uncomplicated; Z96.643 Presence of artificial hip joint, bilateral; Z90.49 Acquired absence of other specified parts of digestive tract; Z98.891 History of uterine scar from previous surgery; Z82.49 Family history of ischemic heart disease and other diseases of the circulatory system
CPT/HCPCS: 0055T; 27447; 64999; 64447; 80048; 85025

== ENCOUNTER → 2024-02-10 | Outpatient (CLI) | payer MEDICARE ==
[2024-02-10 21:23] LABS: ALT 15 U/L (8-44); AST 22 U/L (13-35); Chol/HDL Ratio 3.17 Ratio; LDL Cholesterol,Calculated 92.1 mg/dL (0.0-131.0); VLDL Calculation 18.14 mg/dL (5.00-40.00)
== END | disposition home or self-care (01) ==
LOC: LABWHC1 08:49
PROVIDERS: ATTEND Internal Medicine Cardiovascular Disease
DX: E78.2 Mixed hyperlipidemia (principal)
CPT/HCPCS: 36415; 80061; 84450; 84460